=== PATIENT | female | born 1945 | race Caucasian/White ===

== ENCOUNTER 2016-11-27 15:48 | Emergency (ER) | payer MEDICARE ==
[2016-06-04 03:07] VITALS: BMI 18.2
[~2016-11-27 15:48] MED LIST: ASPIRIN325 MG PO; BAYER CHEWABLE81 MG PO; BETAPACE 80 MG80 MG PO; CARDIZEM CD120 MG PO; COMBIGAN OPHT DR5 ML EACH EYE; CORDARONE200 MG PO; ELIQUIS5 MG PO; FERROUS SU220 MG/5 M PO; FISH OIL 1,0001 CA1 PO; HCTZ25 MG PO; K-DUR20 MEQ PO; LANOXIN250 MCG PO; LASIX40 MG PO; LEVAQUIN750 MG PO; MUCINEX DM ER1 EAC1 PO; NORCO 10/325 TA1 TA1 PO; NORCO 5/325 TAB1 TA1 PO; PRAVACHOL40 MG PO; PRINIVIL10 MG PO; PULMICORT180 MCG/AE INH; ST JOSEPH ASPIR81 MG PO; TUDORZA PRESS400 MCG INH; XALATAN 0.0052.5 ML EACH EYE; XARELTO20 MG PO; XOPENEX 0.0.63 MG/3 UPD; ZESTRIL40 MG
[2016-11-27 16:55] LABS: BASOPHILS 0.1 % (0.0-2.0); EOSINOPHILS 0.3 % (0-7); HEMATOCRIT 43.1 % (36.0-48.0); HEMOGLOBIN 14.4 g/dL (12-16); IMMATURE GRANULOCYTES 0.3 % (0-5); LYMPHOCYTES 7.2 % (15-50); MCH 29.9 pg (26.0-34.0); MCHC 33.4 g/dL (31.0-37.0); MCV 89.6 fL (80.0-100.0); MONOCYTES 7.7 % (2-11); NEUTROPHILS 84.4 % (40-80); PLATELET COUNT 261 10x3/uL (130-400); RBC 4.81 10x6/uL (4.00-5.40); RDW 12.3 % (11.5-14.5); WBC 16.7 10x3/uL (4.8-10.8)
[2016-11-27 17:45] LABS: ALBUMIN 3.8 g/dL (3.4-5.0); ALKALINE PHOSPHATASE 89 U/L (46-116); ALT (SGPT) 13 U/L (10-68); BILIRUBIN - TOTAL 0.83 mg/dL (0.2-1.3); CALC OSMOLALITY 267 mosm/kg (275-300); CALCIUM 9.6 mg/dL (8.5-10.1); CARBON DIOXIDE 29.9 mmol/L (21.0-32.0); CHLORIDE - SERUM 93 mmol/L (98-107); CREATININE - SERUM 0.7 mg/dL (0.6-1.3); GLUCOSE 128 mg/dL (74-106); POTASSIUM - SERUM 3.1 mmol/L (3.5-5.1); SODIUM 133 mmol/L (136-145); UREA NITROGEN 12 mg/dL (7-18); eGFR NON AFRICAN AMERICAN 87 mL/min (90-120)
== END 2016-11-27 19:00 | disposition home or self-care (01) ==
LOC: D.ER 15:48
PROVIDERS: Emergency Medicine
DX: R06.02 Shortness of breath (principal); J44.9 Chronic obstructive pulmonary disease, unspecified; Z85.118 Personal history of other malignant neoplasm of bronchus and lung; I48.91 Unspecified atrial fibrillation; E87.6 Hypokalemia; I10 Essential (primary) hypertension; H40.9 Unspecified glaucoma

== ENCOUNTER 2016-12-14 07:34 | Observation (INO) | payer MEDICARE ==
[~2016-12-14] VITALS: Ht 167.6 cm; Wt 49.7 kg
[2016-12-14 08:36] LABS: BASOPHILS 0.6 % (0.0-2.0); HEMATOCRIT 45.5 % (36.0-48.0); HEMOGLOBIN 14.9 g/dL (12-16); IMMATURE GRANULOCYTES 0.1 % (0-5); LYMPHOCYTES 17.4 % (15-50); MCH 30.1 pg (26.0-34.0); MCHC 32.7 g/dL (31.0-37.0); MCV 91.9 fL (80.0-100.0); MONOCYTES 7.6 % (2-11); NEUTROPHILS 69.3 % (40-80); RBC 4.95 10x6/uL (4.00-5.40); RDW 12.5 % (11.5-14.5); WBC 8.5 10x3/uL (4.8-10.8)
[2016-12-14 08:37] LABS: PLATELET COUNT 354 10x3/uL (130-400)
[2016-12-14 08:52] LABS: ALBUMIN 3.7 g/dL (3.4-5.0); ALKALINE PHOSPHATASE 89 U/L (46-116); ALT (SGPT) 18 U/L (10-68); BILIRUBIN - TOTAL 0.59 mg/dL (0.2-1.3); CALC OSMOLALITY 275 mosm/kg (275-300); CALCIUM 10.2 mg/dL (8.5-10.1); CARBON DIOXIDE 29.6 mmol/L (21.0-32.0); CHLORIDE - SERUM 99 mmol/L (98-107); CREATININE - SERUM 0.8 mg/dL (0.6-1.3); GLUCOSE 133 mg/dL (74-106); POTASSIUM - SERUM 4.6 mmol/L (3.5-5.1); PROTEIN - SERUM 7.5 g/dL (6.4-8.2); SODIUM 137 mmol/L (136-145); UREA NITROGEN 13 mg/dL (7-18); eGFR NON AFRICAN AMERICAN 75 mL/min (90-120)
[2016-12-14 09:00] LABS: PRO BNP 1932 pg/mL (0-125)
[2016-12-14 09:03] LABS: TROPONIN-I < 0.017 ng/mL (0.000-0.060)
[2016-12-14 13:39] VITALS: BP 96/53; Ht 167.6 cm; Wt 49.7 kg
[2016-12-14 15:55] VITALS: BP 81/54
--- NOTE | 2016-12-14 17:13 | NUR ---
CONVERTED TO SR PER POSTING MACHINE OPERATOR
--- NOTE | 2016-12-14 18:24 | NUR ---
SPOKE WITH DR ALEXEI ESQUIVEL'Laura COVERT PT IS NOW IN SR
[2016-12-14 20:02] VITALS: BP 96/55
[2016-12-15] VITALS: BP 96/54
[2016-12-15 04:19] VITALS: BP 119/51
[2016-12-15 06:33] LABS: CALC OSMOLALITY 283 mosm/kg (275-300); CALCIUM 9.1 mg/dL (8.5-10.1); CARBON DIOXIDE 29.5 mmol/L (21.0-32.0); CHLORIDE - SERUM 102 mmol/L (98-107); CREATININE - SERUM 0.7 mg/dL (0.6-1.3); GLUCOSE 152 mg/dL (74-106); POTASSIUM - SERUM 4.1 mmol/L (3.5-5.1); SODIUM 139 mmol/L (136-145); eGFR NON AFRICAN AMERICAN 87 mL/min (90-120)
[2016-12-15 06:36] LABS: UREA NITROGEN 22 mg/dL (7-18)
[2016-12-15 06:47] LABS: BASOPHILS 0 % (0.0-2.0); EOSINOPHILS 0 % (0-7); HEMATOCRIT 38.8 % (36.0-48.0); HEMOGLOBIN 12.5 g/dL (12-16); IMMATURE GRANULOCYTES 0.2 % (0-5); LYMPHOCYTES 8.2 % (15-50); MCH 29.6 pg (26.0-34.0); MCHC 32.2 g/dL (31.0-37.0); MCV 91.9 fL (80.0-100.0); MEAN PLATELET VOLUME 9.1 fL (7.4-10.4); MONOCYTES 1.3 % (2-11); NEUTROPHILS 90.3 % (40-80); RBC 4.22 10x6/uL (4.00-5.40); RDW 12.3 % (11.5-14.5)
[2016-12-15 06:53] LABS: PLATELET COUNT 278 10x3/uL (130-400); WBC 6.3 10x3/uL (4.8-10.8)
[2016-12-15 07:59] VITALS: BP 133/61
--- NOTE | 2016-12-15 08:03 | NUR ---
UP AT BEDSIDE SINK FOR ORAL CARE THIS AM. IV OF NS INFUSING TO RIGHT FA AT 50 CC/HR WITHOUT PROBLEMS. ON HEART MONITOR SHOWING SR, HR 71. ON 2L PER NC. WILL CONTINUE TO MONITOR.
[2016-12-15] MEDS ORDERED: MUCINEX600 MG PO (10:03)
[2016-12-15] MEDS ORDERED: XOPENEX 0.0.63 MG/3 UPD (10:03)
[2016-12-15] MEDS ORDERED: STERAPRED DS 1010 MG PO (10:04)
--- NOTE | 2016-12-15 11:21 | NUR ---
WALK TEST WAS PERFORMED BY RT PEPE ON 12/15/16 WITH RESULTS FOLLOWS: RESTING ROOM AIR SPO2: 90% SPO2 DURING EXERCISE/WALKIN% SPO2 DURING EXERCISE/WALKING ON OXYGEN 2L VIA NC: 96% SPO2 TESTING DOCUMENTATION FORM PLACED IN CHART.
[2016-12-15 12:00] VITALS: BP 109/74
--- NOTE | 2016-12-15 12:05 | NUR ---
REFUSED SCD'S. PATIENT IS UP AD JAM
--- NOTE | 2016-12-15 12:24 | NUR ---
Patient Name: ALEXIS ROBBINS Admission Status: ER Accout number: [id number] Admission Date: 12-14-2016 : 1945 Admission Diagnosis: Attending: SUNITHA Current LOS: 1 Anticipated DC Date: 12-15-2016 Planned Disposition: Home Primary Insurance: HUMA[employer] CHOICE PPO MCR ADVANT Is the patient Alert and Oriented? Yes * How many steps to enter\exit or inside your home? FIVE- WITH HANDRAIL * PCP DR REYES - * Pharmacy [facility] * Preadmission Environment Home Alone * ADLs Partial Dependent * Partial ADLs (Assistance needed) Ambulation * Equipment Bedside Commode Nebulizer Rolling Walker/ROLLATOR Shower Chair PT REPORTS PREFERRED DME PROVIDED IS [employer], BUT INFORMED THAT [employer] IS NOT IN NETWORK WITH [employer], SO SHE IS UNABLE TO USE THEM. * List name and contact numbers for known caregivers / representatives who currently or will assist patient after discharge: LADY CRESPO, DTR, * Community resources currently utilized None * Additional services required to return to the preadmission environment? Yes * Can the patient safely return to the preadmission environment? Yes * Has this patient been hospitalized within the prior 30 days at any hospital? No Discharge Planning Comments: CM MET WITH PATIENT TO ASSESS DC PLAN/NEEDS. PT STATED SHE LIVES AT HOME ALONE AND IS INDEPENDENT IN HER CARE/ADL'S AND USES ROLLATOR WHEN AMBULATING. SHE STATED SHE DOES NOT DRIVE AND HER DAUGHTER PROVIDES HER TRANSPORTATION AND WILL DRIVE HER HOME AT [place]. SHE STATED SHE HAS USED OXYGEN IN THE PAST, BUT HAS NOT REQUIRED OXYGEN IN ABOUT THE LAST TWO YEARS. SHE STATED THAT RECENTLY SHE HAS BEEN MORE SOB AND THAT DR REYES HAD SENT AND OXYGEN ORDER TO [facility] LAST WEEK FROM HER CLINIC. PT STATED THAT SHE HAD RECEIVED A CALL FROM [facility], BUT THAT OXYGEN HAS YET TO BE DELIVERED TO HER. DR ZIEGLER ORDERED SPO2 TESTING DURING THIS HOSPITAL STAY AND PT QUALIFIES FOR OXYGEN. CM RECEIVED ORDER FOR HOME/PORTABLE OXYGEN FROM [facility] AND PLACED CALL TO [facility] TO INFORM OF ORDER. [facility] TO FAX CM OXYGEN ORDER FOR DR ZIEGLER TO SIGN AND INFORMED THAT ONCE ORDER IS RECEIVED THEY WILL DELIVER OXYGEN TO PATIENT. CM WILL AWAIT OXYGEN ORDER FROM [facility] AND PROCEED WITH ORDER ONCE IS HAS BEEN RECEIVED. PT VOICED NO NEED FOR ANY FURTHER DME EQUIPMENT AT THIS TIME. PT STATED SHE HAS USED [facility] IN THE PAST, BUT DOES NOT FEEL SHE WILL REQUIRE HH SERVICES AT [place] AND ALSO DENIED NEED FOR REHAB SERVICES. CM WILL FOLLOW AND ASSIST. Sharepoint Net Developer: Anjelica Vivar RN
--- NOTE | 2016-12-15 12:28 | NUR ---
WALK TEST WAS PERFORMED BY RT PEPE ON 12/15/16 WITH RESULTS FOLLOWS: RESTING ROOM AIR SPO2: 90% ROOM AIR SPO2 DURING EXERCISE/WALKIN% SPO2 DURING EXERCISE/WALKING ON OXYGEN 2L VIA NC: 96% SPO2 TESTING DOCUMENTATION FORM PLACED IN CHART.
--- NOTE | 2016-12-15 15:57 | NUR ---
SALINE LOCK REMOVED WITH CATH TIP INTACT. VERBAL AND WRITTEN DISCHARGE INSTRUCTIONS GIVEN TO PATIENT. DISCHARGED HOME WITH PORTABLE OXYGEN VIA WHEELCHAIR.
--- NOTE | 2016-12-16 16:40 | CN ---
PATIENT NAME:ALEXIS RAMIREZ MEDICAL RECORD: [id number] : [birth year] LOCATION:. D.2111 ADMIT DATE: 12/14/16 ACCOUNT: [id number] CONSULTING PHYSICIAN: JACQUELIN JONES MD REFERRING PHYSICIAN: PHIL REYES MD DATE OF CONSULTATION: 12/14/2016 Cardiology Consultation DIAGNOSES: 1. Atrial fibrillation. 2. History of paroxysmal atrial fibrillation. 3. Tachycardia. 4. Shortness of breath, dyspnea on exertion. 5. Hypertension. 6. Coronary artery disease. HISTORY OF PRESENT ILLNESS: Mrs. Ramirez presents with shortness of breath, dyspnea on exertion. She can feel that her heart has been out of rhythm since this morning. She has a history of atrial fibrillation and has had cardioversion in the past. She is on sotalol for the atrial fibrillation. PHYSICAL EXAMINATION: GENERAL APPEARANCE: Well-nourished, well-developed, appears stated age. Level of distress, comfortable. PSYCHIATRIC: Mental status, alert, normal affect. Orientation, oriented to time, place and person. EYES: Lids and conjunctiva, noninjected. No discharge, no pallor. ENT: Lips, teeth, gums, normal dentition. Oropharynx, no cyanosis, no pallor. NECK: Carotid arteries, bilateral normal upstroke, no bruits, no thrills. JUGULAR VEINS: No jugular venous pressure or distention. CERVICAL LYMPH NODES: Nontender, nonenlarged. THYROID: Not enlarged. Nontender. No nodules. LUNGS: Respiratory effort, unlabored. CHEST: Normal curvature. No thoracic deformity. No chest wall tenderness. Percussion, resonant. Auscultation, clear. No wheezes, no rales, no rhonchi. CARDIOVASCULAR: Precordial exam, nondisplaced. No heaves or pericardial thrills. Heart is irregularly irregular in atrial fibrillation. Heart sounds, normal S1, normal S2. No S3, no gallop, no rub. Systolic murmur, not heard. Diastolic murmur, not heard. EXTREMITIES: No cyanosis, no edema. Peripheral pulses, full and equal in all extremities, except as noted. No bruits appreciated. ABDOMEN: Soft, nondistended. Normal aorta. No bruit. Nontender. No masses. Liver, nontender, no hepatomegaly. Spleen, nontender, no splenomegaly. MUSCULOSKELETAL: No joint tenderness. No joint swelling. No erythema. NEUROLOGICAL: Normal gait, normal strength, normal tone. SKIN: Warm and dry. REVIEW OF SYSTEMS: The patient reports easy bruising but reports no swollen glands. The patient reports no fever, no night sweats, no significant weight gain, no significant weight loss. No significant exercise tolerance. The patient reports no dry eyes, no irritation, no vision change. Patient reports no difficulty hearing and no ear pain. Patient reports no frequent nose bleeds or nose and sinus problems. Patient reports on arm pain on exertion. No shortness of breath while lying down. No history of heart murmur. Patient CONSULT REPORT [id number] ALEXIS RAMIREZ reports no cough, no wheezing or coughing up blood. Patient reports no abdominal pain, no vomiting. Normal appetite. No diarrhea and not vomiting blood. No nausea and no constipation. Patient reports no incontinence. No difficulty urinating. No hematuria. No increased frequency. Patient reports no muscle aches. No weakness, no arthralgias, no back pain. No swelling of the extremities. Patient reports no abnormal mole, no jaundice, no rashes. Reports no loss of consciousness. No weakness and no numbness. No seizures, dizziness, or headaches. The patient reports no depression, no sleep disturbance, feeling safe in a relationship and no alcohol abuse. Patient reports on fatigue. Reports no runny nose or sinus pressure. No itching, no hives, and no frequent sneezing. OVERALL IMPRESSION: At this time, we will try Corvert. If she does not convert with Corvert, we will proceed with DC cardioversion. TRANSINT:[id number] Voice Confirmation ID: [id number] DOCUMENT ID: [id number] JACQUELIN JONES MD at 1640 CC: [id number] DICTATION DATE: 12/14/16 1633 SPECIAL EFFECTS MAKEUP ARTIST: 12/14/16 1649 DIS IN 12/15/16 [id number] [place] [address]
--- NOTE | 2016-12-16 16:40 | DS ---
PATIENT:ALEXIS RAMIREZ :[birth year] MEDICAL RECORD: [id number] DISCHARGE SUMMARY ADMISSION DATE: 12/14/16 DISCHARGE DATE: 12/15/16 DISCHARGE DIAGNOSES: 1. Paroxysmal atrial fibrillation. 2. Atrial fibrillation converted pharmacologically with Corvert to sinus rhythm this admission. 3. Hyperlipidemia. 4. Hypertension. HOSPITAL COURSE: Mrs. Ramirez presents with atrial fibrillation times less than 1 day. She received IV Corvert and converted to sinus rhythm. She was discharged home. Maintain on sotalol. Follow up with Dr. Jarquin as previously scheduled. TRANSINT:[id number] Voice Confirmation ID: [id number] DOCUMENT ID: [id number] JACQUELIN JONES MD at 1640 CC: [id number] DICTATION DATE: 12/15/1637 RAILWAY TRACTION LINE WORKER: 12/15/16 0855 DIS IN 12/15/[address] [address]
== END 2016-12-15 16:01 | disposition home or self-care (01) ==
LOC: D.ER 07:34 → D.M2 12:42 → OBSVTIME 12:42 → D.M2 12:42
PROVIDERS: Emergency Medicine; Family Medicine; ADMIT Family Medicine
DX: I48.0 Paroxysmal atrial fibrillation (principal); I11.0 Hypertensive heart disease with heart failure; I50.9 Heart failure, unspecified; E78.5 Hyperlipidemia, unspecified; I25.10 Atherosclerotic heart disease of native coronary artery without angina pectoris; E05.90 Thyrotoxicosis, unspecified without thyrotoxic crisis or storm; J44.1 Chronic obstructive pulmonary disease with (acute) exacerbation; E83.52 Hypercalcemia; Z87.891 Personal history of nicotine dependence

== ENCOUNTER 2016-12-15 21:51 | Inpatient (IN) | payer MEDICARE ==
[~2016-12-15] VITALS: Ht 167.6 cm; Wt 50.5 kg
[~2016-12-15 21:51] MED LIST changes: +MUCINEX600 MG PO; +STERAPRED DS 1010 MG PO
[2016-12-16 00:21] LABS: BASOPHILS 0 % (0.0-2.0); EOSINOPHILS 0 % (0-7); HEMATOCRIT 40.1 % (36.0-48.0); HEMOGLOBIN 13.2 g/dL (12-16); IMMATURE GRANULOCYTES 0.2 % (0-5); LYMPHOCYTES 3.4 % (15-50); MCHC 32.9 g/dL (31.0-37.0); MCV 91.1 fL (80.0-100.0); MEAN PLATELET VOLUME 8.9 fL (7.4-10.4); MONOCYTES 3.2 % (2-11); NEUTROPHILS 93.2 % (40-80); PLATELET COUNT 313 10x3/uL (130-400); RDW 12.6 % (11.5-14.5); WBC 18.6 10x3/uL (4.8-10.8)
[2016-12-16 00:46] LABS: ALBUMIN 3.4 g/dL (3.4-5.0); ALKALINE PHOSPHATASE 70 U/L (46-116); ALT (SGPT) 17 U/L (10-68); BILIRUBIN - TOTAL 0.27 mg/dL (0.2-1.3); CALC OSMOLALITY 286 mosm/kg (275-300); CALCIUM 9.6 mg/dL (8.5-10.1); CHLORIDE - SERUM 102 mmol/L (98-107); GLUCOSE 134 mg/dL (74-106); POTASSIUM - SERUM 3.7 mmol/L (3.5-5.1); PROTEIN - SERUM 6.9 g/dL (6.4-8.2); SODIUM 142 mmol/L (136-145); UREA NITROGEN 19 mg/dL (7-18)
[2016-12-16 00:47] LABS: CKMB 3.2 U/L (0.0-3.6); CREATINE KINASE 107 UL (21-215); MAGNESIUM - SERUM 2.2 mg/dL (1.8-2.4); PRO BNP 3858 pg/mL (0-125)
[2016-12-16 00:55] LABS: CREATININE - SERUM 0.5 mg/dL (0.6-1.3); TROPONIN-I 0.016 ng/mL (0.000-0.060); eGFR NON AFRICAN AMERICAN > 90 mL/min (90-120)
--- NOTE | 2016-12-16 01:43 | NUR ---
RECEIVED FROM ER, DORITA DRIP@ 10,HEART RATE 115, TELEMTRY ON, CALL LIGHT IN REACH, BED IS LOW, SRX2,DENIES ANY NEEDS, WILL CONTINUE MONITOR
[2016-12-16 02:21] VITALS: BP 107/80; BMI 17.6
[2016-12-16 04:00] VITALS: BP 107/80
--- NOTE | 2016-12-16 04:04 | NUR ---
DUPLICATOR PUNCH OPERATOR AT BEDSIDE TO OBTAIN VITALS, CALL LIGHT IN REACH. WILL CONTINUE TO MONITOR.
--- NOTE | 2016-12-16 04:12 | NUR ---
PT SLEEPING, TELEMTRY 79-CAF, CALL LIGHT IN REACH, SRX2
--- NOTE | 2016-12-16 07:40 | NUR ---
ASSESSMENT COMPLETED. TELEMERTY SHOWS FLUTTER AT 92 RIGHT AC IV WITH CARDIZEM AT 10. SR UP WITH CALL LIGHT IN REACH. WILL MONITOR.DENIES ANY NEEDS
[2016-12-16 08:04] VITALS: BP 83/54
--- NOTE | 2016-12-16 08:11 | NUR ---
RESTING QUIETLY NAD NOTED
[2016-12-16 11:48] VITALS: BP 98/50
[2016-12-16 13:31] VITALS: Ht 167.6 cm; Wt 50.5 kg
[2016-12-16 15:46] VITALS: BP 104/55
[2016-12-16 20:00] VITALS: BP 113/65
--- NOTE | 2016-12-16 20:52 | NUR ---
NOTIFIED BY MT THAT PT HAS CONVERTED TO SR WITH HR OF 69, WILL CONT TO MONITOR.
[2016-12-17] VITALS: BP 110/64
--- NOTE | 2016-12-17 01:47 | NUR ---
PT RESTING SOUNDLY WITHOUT C/O OR DISTRESS NOTED. CALL LIGHT WITHIN REACH. WILL CONT TO MONITOR.
[2016-12-17 04:00] VITALS: BP 119/60
[2016-12-17 06:50] LABS: BASOPHILS 0 % (0.0-2.0); EOSINOPHILS 0 % (0-7); HEMATOCRIT 38.8 % (36.0-48.0); HEMOGLOBIN 12.3 g/dL (12-16); IMMATURE GRANULOCYTES 0.2 % (0-5); LYMPHOCYTES 6.1 % (15-50); MCH 29.6 pg (26.0-34.0); MCHC 31.7 g/dL (31.0-37.0); MCV 93.3 fL (80.0-100.0); MEAN PLATELET VOLUME 9.4 fL (7.4-10.4); MONOCYTES 4.7 % (2-11); PLATELET COUNT 319 10x3/uL (130-400); RBC 4.16 10x6/uL (4.00-5.40); RDW 12.6 % (11.5-14.5); WBC 13.1 10x3/uL (4.8-10.8)
--- NOTE | 2016-12-17 07:52 | NUR ---
PT UP TO BATHROOM DENIES NEEDS WILL CONTIUE TO MONITOR.
[2016-12-17 08:02] VITALS: BP 126/65
[2016-12-17 11:18] VITALS: BP 110/61
[2016-12-17 15:50] VITALS: BP 155/65
--- NOTE | 2016-12-17 17:07 | NUR ---
PT SITTING UP ON SIDE OF BED EATING DINNER DENIES NEEDS WILL CONTINUE TO MONITOR.
--- NOTE | 2016-12-17 19:50 | NUR ---
INIITAL ROUNDS COMPLETED AT 1905 HRS. PT DENIED ANY DISCOMFORT. ASSESSMENT COMPLETED AT 1925 HRS. VSS. ALERT AND ORIENTED TO PERSON, PLACE AND TIME. O2 2LNC. LUNGS DIMINISHED IN BASES BILAT. SR PER CM HR 69. IV TO LFA SL. WILL CONTINUE TO MONITOR. SR UP X2, CALL LIGHT WITHIN REACH.
[2016-12-17 20:28] VITALS: BP 129/70
--- NOTE | 2016-12-17 22:02 | NUR ---
BALJEET DONE. IV TO LFA REDRESSED. PT DENIES ANY DISOCMFORT. WILL CONTINUE TO MONITOR.
[2016-12-18 00:19] VITALS: BP 120/66
--- NOTE | 2016-12-18 00:40 | NUR ---
PT RESTING WITH EYES CLOSED. RESP EVEN AND REGULAR. SR UP X2, CALL LIGHT WITHIN REACH.
--- NOTE | 2016-12-18 02:33 | NUR ---
PT RESTING WITH EYES CLOSED. RESP EVEN AND REGULAR. SR UP X2, CALL LIGHT WITHIN REACH.
--- NOTE | 2016-12-18 04:27 | NUR ---
VSS. PT DENIES AN DISCOMFORT. WILL CONTINUE TO MONITOR.
[2016-12-18 05:17] VITALS: BP 150/66
--- NOTE | 2016-12-18 06:33 | NUR ---
VSS THEOUGHOUT NGIHT. PT DENIED ANY DISCOMFORT. NEEDS MET; WILL CONTINUE TO MONITOR.
[2016-12-18 07:55] VITALS: BP 145/77
[2016-12-18 12:00] VITALS: BP 119/59
[2016-12-18] MEDS ORDERED: XARELTO15 MG PO (12:41)
--- NOTE | 2016-12-18 15:41 | NUR ---
D/C PTS L.FA PIV WITH CATHETER TIP FULLY INTACT. REMOVED TELEMETRY AND ALLOWED PT TO GET DRESSED. PT WAITING ON DISCHARGE PAPERS. NO FURTHER NEEDS AT THIS TIME. FAMILY AT BEDSIDE READY TO TRANSPORT HER HOME. WILL CPOC.
--- NOTE | 2016-12-19 15:45 | EC ---
PATIENT:ALEXIS ROBBINS DATE OF SERVICE: 12/15/16 SEX: F MEDICAL RECORD: [id number] DATE OF : [birth year] LOCATION:D. D.212 AGE OF PATIENT: 70 ADMISSION DATE: 12/15/16 REFERRING PHYSICIAN: INTERPRETING PHYSICIAN: LETICIA JARQUIN M.D. ECHOCARDIOGRAM REPORT ECHO CHARGES 4 ECHO COMPLETE CLINICAL DIAGNOSIS: ELEVATED BNP HX OF HTN LUNG CA ECHOCARDIOGRAPHIC MEASUREMENTS (adult normal given) AC root (d.<3.7cm) 3.4 LV Septum d (<1.2 cm> 1.3 Valve Excursion 1.6 LV Septum (systole) 1.6 Left Atria (s.<4.0cm> 3.1 LVPW d(<1.2cm) 1.7 RV (d.<2.3cm) 3.2 LVPW (sytole) 1.8 LV diastole(<5.6CM) 4.3 MV E-F(>70mm/sec) LV systole 3.1 LVOT Diameter 1.9 MV exc.(>10mm) Est.ejection fraction (50-75%) Pericardial Effusion N DOPPLER: LVIT A 52.0 E 127 LA RVSP 35 LVOT 98 AOP1/2T Asc. Ao 157 RVOT 67 RA PA 99 AV Gradient Peak 9.84 AV Mean 5.51 AV Area 1.9 MV Gradient Peak 9.14 MV Mean 3.21 MV Area COMMENTS: Final Inspector Paper: Dallas LUND Refractory Technician:Dallas Jarquin TAPE# PACS DATE OF SERVICE: 12/16/2016 REFERRING PHYSICIAN: Mason Blackwood MD INDICATIONS: 1. Elevated enzymes. 2. Atrial fibrillation. DESCRIPTION: Left ventricle demonstrates left ventricular hypertrophy. No wall motion abnormalities are seen. Estimated ejection fraction is 60%. Mitral ECHOCARDIOGRAM REPORT [id number] ALEXIS ROBBINS valve is structurally normal. There is mild regurgitation noted. Left atrium is normal in size. The aortic valve is trileaflet. There is no stenosis or regurgitation seen. Right ventricle is mildly dilated. Tricuspid valve is structurally normal. There is mild regurgitation noted. Right atrium is normal in size. There is no pericardial effusion seen. IMPRESSION: 1. Left ventricular hypertrophy with preserved ejection fraction of 60%. 2. Mild mitral regurgitation. 3. Mild tricuspid regurgitation. TRANSINT:[id number] Voice Confirmation ID: [id number] DOCUMENT ID: [id number] LETICIA JARQUIN M.D. at 1545 CC: [id number] DICTATION DATE: 12/17/16 1002 RIVERBOAT CAPTAIN: 12/17/162031 DIS IN 12/18/16 [id number] [place] [id number]
== END 2016-12-18 16:05 | disposition home or self-care (01) | DRG 308 ==
LOC: D.ER 21:51 → D.M2 23:47
PROVIDERS: Family Medicine; ADMIT Family Medicine
DX: I48.91 Unspecified atrial fibrillation (principal); I50.21 Acute systolic (congestive) heart failure; J44.1 Chronic obstructive pulmonary disease with (acute) exacerbation; E87.1 Hypo-osmolality and hyponatremia; I11.0 Hypertensive heart disease with heart failure; I25.10 Atherosclerotic heart disease of native coronary artery without angina pectoris; E05.90 Thyrotoxicosis, unspecified without thyrotoxic crisis or storm

== ENCOUNTER 2017-01-11 07:53 | Emergency (ER) | payer MEDICARE ==
[2016-12-16 13:31] VITALS: BMI 17.6
[~2017-01-11 07:53] MED LIST changes: +XARELTO15 MG PO
[2017-01-11 09:23] LABS: ALBUMIN 3.4 g/dL (3.4-5.0); ALKALINE PHOSPHATASE 104 U/L (46-116); ALT (SGPT) 16 U/L (10-68); BILIRUBIN - TOTAL 0.26 mg/dL (0.2-1.3); CALC OSMOLALITY 277 mosm/kg (275-300); CALCIUM 9.7 mg/dL (8.5-10.1); CARBON DIOXIDE 33.3 mmol/L (21.0-32.0); CHLORIDE - SERUM 100 mmol/L (98-107); CREATININE - SERUM 0.6 mg/dL (0.6-1.3); GLUCOSE 120 mg/dL (74-106); POTASSIUM - SERUM 3.9 mmol/L (3.5-5.1); PROTEIN - SERUM 7.4 g/dL (6.4-8.2); SODIUM 139 mmol/L (136-145); UREA NITROGEN 11 mg/dL (7-18); eGFR NON AFRICAN AMERICAN > 90 mL/min (90-120)
[2017-01-11 09:31] LABS: CREATINE KINASE 48 UL (21-215); PRO BNP 1651 pg/mL (0-125)
[2017-01-11 09:53] LABS: BASOPHILS 0.5 % (0.0-2.0); EOSINOPHILS 7.7 % (0-7); HEMATOCRIT 42.8 % (36.0-48.0); HEMOGLOBIN 13.7 g/dL (12-16); IMMATURE GRANULOCYTES 0.3 % (0-5); LYMPHOCYTES 12.9 % (15-50); MCH 29.8 pg (26.0-34.0); MEAN PLATELET VOLUME 8.9 fL (7.4-10.4); MONOCYTES 9.3 % (2-11); NEUTROPHILS 69.3 % (40-80); PLATELET COUNT 329 10x3/uL (130-400); RDW 12.5 % (11.5-14.5); WBC 6.5 10x3/uL (4.8-10.8)
[2017-01-12] MEDS ORDERED: PRAVACHOL20 MG PO (23:38)
== END 2017-01-11 11:20 | disposition home or self-care (01) ==
LOC: D.ER 07:53
PROVIDERS: Emergency Medicine
DX: I50.9 Heart failure, unspecified (principal); J44.9 Chronic obstructive pulmonary disease, unspecified; I10 Essential (primary) hypertension; I48.91 Unspecified atrial fibrillation

== ENCOUNTER 2017-01-12 19:56 | Inpatient (IN) | payer MEDICARE ==
[~2017-01-12] VITALS: Ht 167.6 cm; Wt 54.1 kg
[2017-01-12 21:01] LABS: BASOPHILS 0.2 % (0.0-2.0); HEMATOCRIT 42.8 % (36.0-48.0); IMMATURE GRANULOCYTES 0.2 % (0-5); LYMPHOCYTES 17.3 % (15-50); MCH 30.2 pg (26.0-34.0); MCHC 32.7 g/dL (31.0-37.0); MCV 92.4 fL (80.0-100.0); MEAN PLATELET VOLUME 8.8 fL (7.4-10.4); MONOCYTES 11.2 % (2-11); NEUTROPHILS 62.1 % (40-80); PLATELET COUNT 342 10x3/uL (130-400); RBC 4.63 10x6/uL (4.00-5.40); RDW 12.4 % (11.5-14.5)
[2017-01-12 21:13] LABS: WBC 8.7 10x3/uL (4.8-10.8)
[2017-01-12 21:17] LABS: ALBUMIN 3.7 g/dL (3.4-5.0); ALKALINE PHOSPHATASE 112 U/L (46-116); ALT (SGPT) 17 U/L (10-68); BILIRUBIN - TOTAL 0.48 mg/dL (0.2-1.3); CALC OSMOLALITY 275 mosm/kg (275-300); CARBON DIOXIDE 36.1 mmol/L (21.0-32.0); CHLORIDE - SERUM 96 mmol/L (98-107); CREATININE - SERUM 0.7 mg/dL (0.6-1.3); GLUCOSE 112 mg/dL (74-106); POTASSIUM - SERUM 3.8 mmol/L (3.5-5.1); PROTEIN - SERUM 7.9 g/dL (6.4-8.2); SODIUM 137 mmol/L (136-145); eGFR NON AFRICAN AMERICAN 87 mL/min (90-120)
[2017-01-12 21:18] LABS: UREA NITROGEN 16 mg/dL (7-18)
[2017-01-12 21:24] LABS: CREATINE KINASE 50 UL (21-215); PRO BNP 571 pg/mL (0-125)
--- NOTE | 2017-01-12 23:31 | NUR ---
RECEIVED REPORT FROM PRINCE IN ER, [id number] INFUSING, 02-2L, VITALS ARE STABLE, BED IS LOW, SRX2, CALL LIGHT IN REACH, WILL CONTINUE TO MONITOR
[2017-01-12] MEDS ORDERED: PRAVACHOL20 MG PO (23:38)
[2017-01-13 01:20] VITALS: BP 156/68
--- NOTE | 2017-01-13 03:40 | NUR ---
SITTING UP IN BED, TOOK SCD IN ROOM,NEEDS SCD MACHINE, WILL GET IN AM, PT IS UP ABLIB,DENIES ANY NEEDS, CALL LIGHT IN REACH
[2017-01-13 04:33] VITALS: BP 125/76
--- NOTE | 2017-01-13 07:11 | NUR ---
AM ROUNDING- PT LAYING IN BED ON BACK WITH EYES OPEN RESTING CURRENTLY RECEIVING A BREATHING TX. ON 02 AT 2L VIA NC. IV SEEN TO LEFT FOREARM THAT IS CURRENTLY SALINE LOCKED AND PATENT. ON MONITOR SHOWING SR, HR 91 WITH PAC'S. SCDS ARE AT BEDSIDE BUT NO SCD MACHINE IS IN PT ROOM. WILL GET A MACHINE IN PTS ROOM. NO NEED AT CURRENT TIME. WILL CONTINUE TO MONITOR.
[2017-01-13 08:01] VITALS: BP 121/69
[2017-01-13 11:46] VITALS: BP 104/66
[2017-01-13 13:44] VITALS: Ht 167.6 cm; Wt 54.1 kg
[2017-01-13 15:23] LABS: CKMB 1.8 U/L (0.0-3.6); CREATINE KINASE 50 UL (21-215)
[2017-01-13 15:26] LABS: TROPONIN-I < 0.017 ng/mL (0.000-0.060)
--- NOTE | 2017-01-13 15:32 | NUR ---
EKG DONE ON PT ORDERED AND PLACED IN CHART.
[2017-01-13 15:56] VITALS: BP 105/72
--- NOTE | 2017-01-13 16:40 | NUR ---
JUSTINA NOTIFIED ME THAT PT WAS IN UNCONTROLLED A-FIB AT 164. WENT TO CHECK TO SEE HOW PT WAS DOING AND PT STATED SHE FELT FINE. I ASKED PT IF SHE HAD BEEN IN A-FIB BEFORE AND SHE STATED YES THAT IS WHAT SHE TAKES BETAPACE FOR. PAGED DARLINE MURCIA NP TO NOTIFIY HER. LEIGH SORIANO IS IN ROOM NOW GETTING VITALS. WILL AWAIT CALLBACK AND CONTINUE TO MONITOR. NOTICED THAT PTS HOME MEDICAIONS WERE REVIEWED BY RN BUT HAD NOT BEEN CONTINUED BY PRIMARY. PAGED PRIMARY AND THEY CONTINUED ALL HOME MEDS WILL GIVE FIRST DOSE NOW. PAGED ON-CALL PLUMBER HELPER AND GOT ORDER FOR A ONE TIME DOSE OF BETAPACE 80MG AND REST OF MEDS TO BE CONTINUED. WILL CONTINUE TO MONITER CLOSELY.
--- NOTE | 2017-01-13 17:23 | NUR ---
Patient Name: ALEXIS ROBBINS Admission Status: ER Accout number: [id number] Admission Date: 01-12-2017 : 1945 Admission Diagnosis:SHORTNESS OF BREATH Attending: BERRY Current LOS: 1 Anticipated DC Date: Planned Disposition: Home Primary Insurance: [employer] CHOICE PPO MCR ADVANT Discharge Planning Comments: * Is the patient Alert and Oriented? Yes 0 * How many steps to enter\exit or inside your home? 5 W/RAIL 0 * PCP DR. REYES 0 * Pharmacy [facility] [address] 0 * Preadmission Environment Home Alone 0 * ADLs Independent 0 * Equipment Bedside Commode Nebulizer Oxygen Rolling Walker Shower Chair 0 * Other Equipment HOME AND PORTABLE OXYGEN [facility] - MEDICAL EQUIPMENT PROVIDER 0 * List name and contact numbers for known caregivers / representatives who currently or will assist patient after discharge: LADY CRESPO, DAUGHTER, 0 * Community resources currently utilized None 0 * Please name any agencies selected above. NONE 0 * Additional services required to return to the preadmission environment? No 0 * Can the patient safely return to the preadmission environment? Yes 0 * Has this patient been hospitalized within the prior 30 days at any hospital? Yes 0 CM MET WITH PT IN ROOM TO DISCUSS DISCHARGE PLANNING AND NEEDS. PT REPORTS LIVING AT HOME INDEPENDENTLY AND ALONE. PT REPORTS HAVING ALL NEEDED MEDICAL EQUIPMENT PROVIDED BY [facility]. PT HAS NO OUTSIDE SERVICES ASSISTING IN THE HOME. CM DISCUSSED AVAILABILITY OF HOME HEALTH, REHAB SERVICES AND MEDICAL EQUIPMENT. PT DENIES DISCHARGE NEEDS, REPORTS DAUGHTER WILL PICK HER UP FOR DISCHARGE HOME. CM OFFERED FOR HOME HEALTH TO CALL HER AFTER DISCHARGE TO CHECK ON HER AND ENSURE SHE NEEDED NOTHING AFTER GETTING HOME, PT REFUSED. CM PROVIDED PT WITH HOME HEALTH INFORMATION. PT PLANS TO DISCHARGE HOME ALONE, DENIES DISCHARGE NEEDS, DECLINES HOME HEALTH. CM TO FOLLOW AND ASSIST NEEDED. Nurse Epidemiologist: Jorge Mitchell
--- NOTE | 2017-01-13 17:42 | NUR ---
TOOK PTS VITAL SIGNS. HR- UNCONTROLLED A-FIB HR, 136 (DOCTOR IS AWARE) B/P- 124/85 RR- 16 TEMP- 98.2 ORALLY. PT STATED IT TAKES A LITTLE WHILE FOR HER SOTALOL TO START WORKING. PT STATED SHE FEELS FINE. WILL CONTINUE TO MONITOR.
--- NOTE | 2017-01-13 18:36 | NUR ---
PT LAYING IN BED ON BACK WITH EYES OPEN RESTING. DENIES ANY NEED AT THIS TIME. WILL CONTINUE TO MONITOR.
--- NOTE | 2017-01-13 19:39 | NUR ---
RESUMED CARE OF PT, 02-2L, IV-LFA-SL, [id number], SCD ARE ON, BED IS LOW, SRX2, DENIES ANY NEEDS, CALL LIGHT IN REACH, WILL CONTINUE TO MONITOR
[2017-01-13 20:20] VITALS: BP 109/69
[2017-01-13 20:55] LABS: CKMB 2.1 U/L (0.0-3.6); CREATINE KINASE 57 UL (21-215)
[2017-01-13 20:57] LABS: TROPONIN-I < 0.017 ng/mL (0.000-0.060)
[2017-01-14 00:15] VITALS: BP 97/66
[2017-01-14 01:40] LABS: BASOPHILS 0 % (0.0-2.0); EOSINOPHILS 0 % (0-7); HEMATOCRIT 39.5 % (36.0-48.0); HEMOGLOBIN 12.9 g/dL (12-16); IMMATURE GRANULOCYTES 0.2 % (0-5); LYMPHOCYTES 6.1 % (15-50); MCH 29.5 pg (26.0-34.0); MCHC 32.7 g/dL (31.0-37.0); MEAN PLATELET VOLUME 8.7 fL (7.4-10.4); MONOCYTES 5.6 % (2-11); NEUTROPHILS 88.1 % (40-80); PLATELET COUNT 347 10x3/uL (130-400); RBC 4.37 10x6/uL (4.00-5.40); RDW 12.3 % (11.5-14.5)
[2017-01-14 01:43] LABS: MCV 90.4 fL (80.0-100.0); WBC 12.4 10x3/uL (4.8-10.8)
[2017-01-14 01:55] LABS: CALC OSMOLALITY 279 mosm/kg (275-300); CALCIUM 9.3 mg/dL (8.5-10.1); CARBON DIOXIDE 34.4 mmol/L (21.0-32.0); CHLORIDE - SERUM 96 mmol/L (98-107); CREATININE - SERUM 0.7 mg/dL (0.6-1.3); GLUCOSE 147 mg/dL (74-106); MAGNESIUM - SERUM 1.6 mg/dL (1.8-2.4); PHOSPHOROUS 3.5 mg/dL (2.5-4.9); POTASSIUM - SERUM 3.5 mmol/L (3.5-5.1); SODIUM 138 mmol/L (136-145); UREA NITROGEN 16 mg/dL (7-18); eGFR NON AFRICAN AMERICAN 87 mL/min (90-120)
[2017-01-14 02:05] LABS: CKMB 1.9 U/L (0.0-3.6); CREATINE KINASE 58 UL (21-215); TROPONIN-I < 0.017 ng/mL (0.000-0.060)
[2017-01-14 04:20] VITALS: BP 92/61
[2017-01-14 08:39] VITALS: BP 108/66
--- NOTE | 2017-01-14 09:07 | HP ---
PATIENT: ALEXIS RAMIREZ MEDICAL RECORD: [id number] ACCOUNT: [id number] LOCATION:[address] : [birth year] ADMISSION DATE: 01/12/17 HISTORY AND PHYSICAL EXAMINATION HISTORY OF PRESENT ILLNESS: Ms. Ramirez is a 71-year-old white female patient of Dr. Burnett, who presents with a 3-day history of increasing shortness of breath, dyspnea on exertion, cough, chest tightness and known history of COPD. She has had some palpitations. She presents to the Emergency Room where she was found to have an acute exacerbation of COPD. She is also experiencing some intermittent atrial fibrillation. She is admitted at this time for evaluation. PAST MEDICAL HISTORY: Significant for intermittent AFib, hypertension, COPD, anemia, lung cancer in 2013, hyperlipidemia, macular degeneration, hyperthyroidism with thyrotoxicosis. GARAGE SUPERVISOR: Kenn Feliz MD. EGG SMELLER: Karel Seaman MD. PAST SURGICAL HISTORY: Previous surgeries include a left upper lobe lobectomy in 2013. ALLERGIES OR INTOLERANCES: Albuterol. HOME MEDICATIONS: Include Tudorza 1 puff b.i.d., Xopenex p.r.n., Xarelto 15 mg twice a day, pravastatin 20 mg daily, Betapace 40 mg b.i.d., baby aspirin a day, HCTZ 25 mg daily, KCl 20 mEq b.i.d., guaifenesin, Combigan ophthalmic drops and Xalatan ophthalmic drops. FAMILY HISTORY: Noncontributory. SOCIAL HISTORY: The patient is a former smoker, she quit in 2013. REVIEW OF SYSTEMS: She complains of increasing shortness of breath, coughing, wheezing; cough has been productive with discolored sputum. She has had a little tightness in her left chest when she takes a deep breath or coughs, nothing associated with exertion. She denies any edema. Appetite has been okay. Bowels have been okay. No change in urination. PHYSICAL EXAMINATION: GENERAL/APPEARANCE: No distress at this time, but she is at rest. HEENT: Head is normocephalic, sclerae nonicteric. HEART: Regular at this time without any irregularity. LUNGS: Diminished with a few rales and crackles diffusely. ABDOMEN: Soft. EXTREMITIES: Lower extremities reveal no edema. NEUROLOGIC: No gross focal deficits. IMPRESSION: 1. Chronic obstructive pulmonary disease exacerbation. 2. History of lung cancer. 3. Hyperthyroidism, currently being worked up and will be seeing endocrinology soon. 4. Hyperlipidemia. HISTORY AND PHYSICAL [id number] ALEXIS RAMIREZ PLAN: Admit, pulmonary consult, pulmonary toilet. Appreciate Dr. Seaman's help. See orders for rest of the plan. TRANSINT:[id number] Voice Confirmation ID: [id number] DOCUMENT ID: [id number] JUSTIN FRANCOIS DO at 0907 CC: [id number] DICTATION DATE: 01/13/17 1436 SHOW HOST: 01/13/17 1756 ADM IN [facility] [address] [place] [address]
--- NOTE | 2017-01-14 09:20 | NUR ---
TELEMETRY UCAF. RESP UL ON 02 2L NC. NPO FOR CTA. WILL CONT. PLAN OF CARE.
--- NOTE | 2017-01-14 09:40 | NUR ---
IV STARTED TO RIGHT WRIST WITH 20 GAUGE CATH X 1 STICK AND FLUSHED WITH NS. LINE IS PATENT.
[2017-01-14 12:22] VITALS: BP 95/63
--- NOTE | 2017-01-14 12:29 | NUR ---
LEAVING FOR CT BY W/C.
[2017-01-14 16:14] VITALS: BP 111/68
--- NOTE | 2017-01-14 19:13 | NUR ---
RESUMED CARE OF PT, PT SLEEPING, 02-2L, IV-LFA-SL, [id number], BED IS LOW, SRX2, CALL LIGHT IN REACH, WILL CONTINUE TO MONITOR
[2017-01-14 20:02] VITALS: BP 124/62
--- NOTE | 2017-01-14 21:40 | NUR ---
PT LAYING IN BED, WATCHING TV. NO NEEDS OR C/O VOICED. WILL CONT TO MONITOR.
[2017-01-15 00:14] VITALS: BP 112/63
--- NOTE | 2017-01-15 00:31 | NUR ---
SLEEPING, BED IS LOW, SRX2, CALL LIGHT IN REACH
[2017-01-15 04:13] VITALS: BP 119/56
[2017-01-15 08:00] VITALS: BP 128/61
--- NOTE | 2017-01-15 10:37 | NUR ---
TELEMETRY SR. RESP UL ON 2L NC. IV PATENT. CALL LIGHT IN REACH. WILL CONT. PLAN OF CARE.
[2017-01-15 11:53] VITALS: BP 132/74
[2017-01-15 15:57] VITALS: BP 130/66
[2017-01-15 20:36] VITALS: BP 144/70
[2017-01-16 01:24] VITALS: BP 143/85
--- NOTE | 2017-01-16 02:18 | NUR ---
TALKING ON THE PHONE WHILE LAYING UNDEER THE COVERS.RESP UNLAB WITH O2 @ 2L VIA NC. TELEMETRY SHOWING HR SR AT THIS TIRM. DENIES NEEDS AT THIS TIME. C/L IN REACG.
[2017-01-16 06:26] VITALS: BP 103/55
--- NOTE | 2017-01-16 07:38 | NUR ---
ON EP, NO LABS ORDERED, DONE. BILATERAL SALINE LOCKS SEEN TO RIGHT AND LEFT WRISTS. ON 2L PER NC. ON HEART MONITOR SHOWING SR, HR 67. DENIES ANY NEEDS AT PRESENT TIME. WILL CONTINUE TO FOLLOW.
[2017-01-16 07:47] VITALS: BP 133/46
[2017-01-16 08:13] LABS: MAGNESIUM - SERUM 2.1 mg/dL (1.8-2.4); PHOSPHOROUS 3.5 mg/dL (2.5-4.9); POTASSIUM - SERUM 4.2 mmol/L (3.5-5.1)
--- NOTE | 2017-01-16 08:35 | NUR ---
EP LAB VALUES WNL, WILL ORDER THEM FOR TOMORROW.
[2017-01-16 11:10] VITALS: BP 112/64
[2017-01-16] MEDS ORDERED: BETAPACE 80 MG80 MG PO (11:23)
[2017-01-16] MEDS ORDERED: FLORAJEN3 CAPS460 MG PO (11:26)
[2017-01-16] MEDS ORDERED: Levaquin PO (11:27)
[2017-01-16] MEDS ORDERED: PREDNISONE10 MG PO (11:27)
[2017-01-16] MEDS ORDERED: LEVAQUIN500 MG PO (11:29)
[2017-01-16] MEDS ORDERED: XARELTO15 MG PO (11:53)
--- NOTE | 2017-01-16 13:17 | NUR ---
PER PATIENT REQUEST SHE STATES THAT DARLINE MURCIA WAS SUPPOSE TO GIVE HER ANOTHER [address] ZIEGLER. CALLED AND SPOKE TO SUMMER. BILATERAL SALINE LOCKS REMOVED WITH CATH TIPS INTACT. VERBAL AND WRITTEN DISCHARGE INSTRUCTIONS GIVEN TO PATIENT AND DAUGHTER. DISCHARGED HOME ON HOME PORTABLE O2, PER WHEELCHAIR.
--- NOTE | 2017-01-16 13:39 | NUR ---
Patient Name: ALEXIS ROBBINS Encounter No: [id number] : 1945 Primary Insurance: [employer] CHOICE PPO MCR ADVANT Anticipated DC Date: 01-16-2017 Planned Disposition: Home LATE ENTRY: DCP follow-up note: CM MET WITH PT IN ROOM TO DISCUSS DISCHARGE NEEDS AND PLANNING. CM DISCUSSED AVAILABILITY OF HOME HEALTH, REHAB SERVICES AND MEDICAL EQUIPMENT. PT DENIES DISCHARGE NEEDS. DAUGHTER HERE TO TRANSPORT HOME AT DISCHARGE. IMPORTANT MESSAGE FROM MEDICARE PROVIDED AND EXPLAINED. Jorge Mitchell, CASE MANAGEMENT
--- NOTE | 2017-01-20 08:46 | CN ---
PATIENT NAME:ALEXIS RAMIREZ MEDICAL RECORD: [id number] : 41 LOCATION:D. D.2109 ADMIT DATE: 01/12/17 ACCOUNT: [id number] CONSULTING PHYSICIAN: JACQUELIN JONES MD REFERRING PHYSICIAN: ALBERTINA CASTILLO MD DATE OF CONSULTATION: 01/14/2017 DIAGNOSES: 1. Atrial fibrillation with rapid ventricular response. 2. Chronic obstructive pulmonary disease. 3. Coronary artery disease. 4. Hyperlipidemia. HISTORY OF PRESENT ILLNESS: Mrs. Ramirez is well known to us with a past history of atrial fibrillation and COPD. She presents with COPD exacerbation. Initially was in sinus rhythm. She has now gone into atrial fibrillation. She was on sotalol 40 mg b.i.d. She had a similar episode last month she had to have increased sotalol and Cardizem bolus to restore sinus rhythm. She has had no anginal chest discomfort. Her EKG is with no ST-T abnormalities. Troponin has been normal. PHYSICAL EXAMINATION: GENERAL APPEARANCE: Well-nourished, well-developed, appears stated age. Level of distress, comfortable. PSYCHIATRIC: Mental status, alert, normal affect. Orientation, oriented to time, place and person. EYES: Lids and conjunctiva, noninjected. No discharge, no pallor. ENT: Lips, teeth, gums, normal dentition. Oropharynx, no cyanosis, no pallor. NECK: Carotid arteries, bilateral normal upstroke, no bruits, no thrills. JUGULAR VEINS: No jugular venous pressure or distention. CERVICAL LYMPH NODES: Nontender, nonenlarged. THYROID: Not enlarged. Nontender. No nodules. LUNGS: Respiratory effort, unlabored. CHEST: Normal curvature. No thoracic deformity. No chest wall tenderness. Percussion, resonant. Auscultation, clear. No wheezes, no rales, no rhonchi. CARDIOVASCULAR: Precordial exam, nondisplaced. No heaves or pericardial thrills. Rate and rhythm, regular. Heart sounds, normal S1, normal S2. No S3, no gallop, no rub. Systolic murmur, not heard. Diastolic murmur, not heard. EXTREMITIES: No cyanosis, no edema. Peripheral pulses, full and equal in all extremities, except as noted. No bruits appreciated. ABDOMEN: Soft, nondistended. Normal aorta. No bruit. Nontender. No masses. Liver, nontender, no hepatomegaly. Spleen, nontender, no splenomegaly. MUSCULOSKELETAL: No joint tenderness. No joint swelling. No erythema. NEUROLOGICAL: Normal gait, normal strength, normal tone. SKIN: Warm and dry. REVIEW OF SYSTEMS: The patient reports easy bruising but reports no swollen glands. The patient reports no fever, no night sweats, no significant weight gain, no significant weight loss. No significant exercise tolerance. The patient reports no dry eyes, no irritation, no vision change. Patient reports no difficulty hearing and no ear pain. Patient reports no frequent nose bleeds or nose and sinus problems. Patient reports on arm pain on exertion. No shortness of breath while lying down. No history of heart murmur. Patient reports no cough, no wheezing or coughing up blood. Patient reports no abdominal pain, no vomiting. Normal appetite. No diarrhea and not vomiting CONSULT REPORT [id number] ALEXIS RAMIREZ blood. No nausea and no constipation. Patient reports no incontinence. No difficulty urinating. No hematuria. No increased frequency. Patient reports no muscle aches. No weakness, no arthralgias, no back pain. No swelling of the extremities. Patient reports no abnormal mole, no jaundice, no rashes. Reports no loss of consciousness. No weakness and no numbness. No seizures, dizziness, or headaches. The patient reports no depression, no sleep disturbance, feeling safe in a relationship and no alcohol abuse. Patient reports on fatigue. Reports no runny nose or sinus pressure. No itching, no hives, and no frequent sneezing. OVERALL IMPRESSION: Atrial fibrillation. At this time, we will offer sotalol to 80 mg b.i.d. and most likely keep it at 80 mg b.i.d., give a Cardizem bolus times 1. Hopefully, this will restore sinus rhythm as it has in the past. TRANSINT:[id number] Voice Confirmation ID: [id number] DOCUMENT ID: [id number] JACQUELIN JONES MD at 0846 CC: [id number] DICTATION DATE: 01/14/17 0942 PUBLIC TRANSPORTATION INSPECTOR: 01/14/17 1149 DIS IN 01/16/17 [id number] [place] [address]
== END 2017-01-16 13:28 | disposition home or self-care (01) | DRG 192 ==
LOC: D.ER 19:56 → D.M2 22:52
PROVIDERS: Emergency Medicine; Family Medicine; Internal Medicine Pulmonary Disease; ADMIT Family Medicine
DX: J44.0 Chronic obstructive pulmonary disease with (acute) lower respiratory infection (principal); J44.1 Chronic obstructive pulmonary disease with (acute) exacerbation; I48.91 Unspecified atrial fibrillation; E78.5 Hyperlipidemia, unspecified; I10 Essential (primary) hypertension; D50.9 Iron deficiency anemia, unspecified; H35.30 Unspecified macular degeneration; E05.90 Thyrotoxicosis, unspecified without thyrotoxic crisis or storm; J20.9 Acute bronchitis, unspecified; I25.10 Atherosclerotic heart disease of native coronary artery without angina pectoris; J30.9 Allergic rhinitis, unspecified; B37.9 Candidiasis, unspecified; Z87.891 Personal history of nicotine dependence

== ENCOUNTER 2017-02-09 09:30 | Emergency (ER) | payer MEDICARE ==
[2017-01-13 13:44] VITALS: BMI 17.6
[~2017-02-09 09:30] MED LIST changes: +FLORAJEN3 CAPS460 MG PO; +LEVAQUIN500 MG PO; +Levaquin PO; +PRAVACHOL20 MG PO; +PREDNISONE10 MG PO
[2017-02-09 10:36] LABS: BASOPHILS 0.5 % (0.0-2.0); EOSINOPHILS 13.4 % (0-7); HEMATOCRIT 44.4 % (36.0-48.0); HEMOGLOBIN 14.2 g/dL (12-16); IMMATURE GRANULOCYTES 0.2 % (0-5); LYMPHOCYTES 11.3 % (15-50); MCH 30.1 pg (26.0-34.0); MCV 94.3 fL (80.0-100.0); MEAN PLATELET VOLUME 8.8 fL (7.4-10.4); NEUTROPHILS 69.6 % (40-80); PLATELET COUNT 309 10x3/uL (130-400); RBC 4.71 10x6/uL (4.00-5.40); RDW 13.3 % (11.5-14.5); WBC 8.8 10x3/uL (4.8-10.8)
[2017-02-09 10:58] LABS: ALBUMIN 3.6 g/dL (3.4-5.0); ALKALINE PHOSPHATASE 98 U/L (46-116); ALT (SGPT) 22 U/L (10-68); CALC OSMOLALITY 270 mosm/kg (275-300); CALCIUM 9.7 mg/dL (8.5-10.1); CARBON DIOXIDE 32.8 mmol/L (21.0-32.0); CHLORIDE - SERUM 97 mmol/L (98-107); CREATININE - SERUM 0.7 mg/dL (0.6-1.3); GLUCOSE 126 mg/dL (74-106); POTASSIUM - SERUM 4.6 mmol/L (3.5-5.1); PROTEIN - SERUM 7.2 g/dL (6.4-8.2); SODIUM 135 mmol/L (136-145); TROPONIN-I < 0.017 ng/mL (0.000-0.060); UREA NITROGEN 9 mg/dL (7-18); eGFR NON AFRICAN AMERICAN 87 mL/min (90-120)
== END 2017-02-09 11:24 | disposition home or self-care (01) ==
LOC: D.ER 09:30
PROVIDERS: Physician Assistant
DX: K04.7 Periapical abscess without sinus (principal); K02.9 Dental caries, unspecified; K08.89 Other specified disorders of teeth and supporting structures; I48.91 Unspecified atrial fibrillation; J44.9 Chronic obstructive pulmonary disease, unspecified; I50.9 Heart failure, unspecified; I10 Essential (primary) hypertension; R00.1 Bradycardia, unspecified

== ENCOUNTER → 2017-04-20 10:32 | Outpatient (CLI) | payer MEDICARE ==
[2017-01-13 13:44] VITALS: BMI 17.6
== END | disposition home or self-care (01) ==
LOC: D.RT 10:32
DX: J44.9 Chronic obstructive pulmonary disease, unspecified (principal)

== ENCOUNTER → 2018-06-25 08:55 | Outpatient (CLI) | payer MEDICARE ==
[2017-01-13 13:44] VITALS: BMI 17.6
== END | disposition home or self-care (01) ==
LOC: D.RT 08:55
DX: J44.9 Chronic obstructive pulmonary disease, unspecified (principal)

== ENCOUNTER 2019-11-03 12:24 | Inpatient (IN) | payer MEDICARE ==
[2019-11-03] VITALS (8 sets, daily range): BP systolic 104–204; BP diastolic 60–94
[~2019-11-03] VITALS: Ht 167.6 cm; Wt 55.9 kg
[2019-11-03] MEDS ORDERED: TRELEGY ELLIPT1 EACH INH (12:30)
[2019-11-03] MEDS ORDERED: LISINOPRIL10 MG PO (12:49)
[2019-11-03] MEDS ORDERED: CATAPRES0.1 MG PO (12:50)
[2019-11-03 13:55] LABS: BASOPHILS 0.1 % (0-2); EOSINOPHILS 0.6 % (0-7); HEMATOCRIT 38.3 % (36.0-48.0); IMMATURE GRANULOCYTES 0.4 % (0-5); LYMPHOCYTES 5.3 % (15-50); MCH 29.6 pg (26.0-34.0); MCHC 31.3 g/dL (31.0-37.0); MCV 94.6 fL (80.0-100.0); MEAN PLATELET VOLUME 8.3 fL (7.4-10.4); MONOCYTES 7.7 % (2-11); NEUTROPHILS 85.9 % (40-80); PLATELET COUNT 302 10x3/uL (130-400); RBC 4.05 10x6/uL (4.00-5.40); RDW 13.6 % (11.5-14.5); WBC 11.1 10x3/uL (4.8-10.8)
[2019-11-03 14:04] LABS: CALC OSMOLALITY 282 mosm/kg (275-300); CALCIUM 9.3 mg/dL (8.5-10.1); CARBON DIOXIDE 31.8 mmol/L (21.0-32.0); CHLORIDE - SERUM 101 mmol/L (98-107); CREATININE - SERUM 0.7 mg/dL (0.6-1.3); GLUCOSE 112 mg/dL (74-106); SODIUM 141 mmol/L (136-145); UREA NITROGEN 16 mg/dL (7-18); eGFR NON AFRICAN AMERICAN 86 mL/min (90-120)
[2019-11-03 14:10] LABS: ALBUMIN 3.5 g/dL (3.4-5.0); ALKALINE PHOSPHATASE 102 U/L (46-116); ALT (SGPT) 16 U/L (10-68); BILIRUBIN - TOTAL 0.31 mg/dL (0.2-1.3); PROTEIN - SERUM 7.2 g/dL (6.4-8.2)
--- NOTE | 2019-11-03 15:15 | NUR ---
PT TO MRI AT THIS TIME
--- NOTE | 2019-11-03 15:50 | NUR ---
CALLED TO MRI. WENT OVER. PT CONTINUES TO BE VERY ANXIOUS ABOUT "GOING IN THE TUBE." EDP, DEBRA, INFORMED WHO GIVES VERBAL ORDER FOR 1MG ATIVAN IV ONE TIME. WILL CARRY OUT ORDER AND REASSESS.
--- NOTE | 2019-11-03 16:00 | NUR ---
PT RETURNED FROM MRI AT THIS TIME. PT RESTING IN BED WITH FAMILY AT BEDSIDE.
--- NOTE | 2019-11-03 17:54 | NUR ---
PROVIDED PT WITH ICE CHIPS
--- NOTE | 2019-11-03 18:19 | MORECARE ---
CASE MANAGEMENT DISCHARGE SUMMARY PATIENT: ALEXIS ROBBINS UNIT: [id number] ADM DATE: 11/03/19 AGE: 73 : 43 SEX: F ROOM/BED: D.1210 AUTHOR: BETO LIU PHYSICIAN: REFERRING PHYSICIAN: SHERI AUSTIN MD DATE OF SERVICE: 11/03/19 Discharge Plan Patient Name: ALEXIS ROBBINS [facility] [facility] 1945 Planned Disposition: Home Anticipated Discharge Date: 11/05/19 Discharge Date: Expected LOS: 2 Initial Reviewer: [email or web address] Initial Review Date: 11/03/2019 Generated: 11/03/19 7:19 pm Patient Name: ALEXIS ROBBINS Page 98440 at 1819 All edits/amendments must be made on the electronic document DICTATION DATE: 11/03/191818 RN NICU: ELIANE 11/03/191818 RPT#: [id number] DC DATE: STATUS: ADM IN [facility] [address] [place] [address] END OF REPORT
--- NOTE | 2019-11-03 18:26 | MORECARE ---
CASE MANAGEMENT DISCHARGE SUMMARY PATIENT: ALEXIS ROBBINS UNIT: [id number] ADM DATE: 11/03/19 AGE: 73 : 43 SEX: F ROOM/BED: D.1210 AUTHOR: BETO LIU PHYSICIAN: REFERRING PHYSICIAN: SHERI AUSTIN MD DATE OF SERVICE: 11/03/19 Discharge Plan Patient Name: ALEXIS ROBBINS [facility] [facility] 1945 Planned Disposition: Home Anticipated Discharge Date: 11/05/19 Discharge Date: Expected LOS: 2 Initial Reviewer: [email or web address] Initial Review Date: 11/03/2019 Generated: 11/03/19 7:25 pm DCPIA - Discharge Planning Initial Assessment Updated by [email or web address]: Lara Torre on 11/03/19 6:22 pm * Is the patient Alert and Oriented? Yes * PCP Dr. Burnett * Pharmacy [place] [address] , [place] [phone] * Preadmission Environment Home Alone * ADLs Independent * Equipment Bedside Commode Cane Oxygen Rolling Walker * Other Equipment Home O2 w/ portability - [employer] is her DME provider. * List name and contact numbers for known caregivers / representatives who currently or will assist patient after discharge: Laisha Monzon - daughter - [phone] * Verbal permission to speak to the caregivers and representatives has been obtained from the patient. Yes * Community resources currently utilized Home Health * Please name any agencies selected above. [facility] - JACQUE signed in ER for resumption. * Additional services required to return to the preadmission environment? Yes * Can the patient safely return to the preadmission environment? Yes * Has this patient been hospitalized within the prior 30 days at any hospital? No Last DP export: 11/03/19 5:19 p Patient Name: ALEXIS ROBBINS Page [id number] at 5126 All edits/amendments must be made on the electronic document DICTATION DATE: 11/03/191824 AD OPERATIONS COORDINATOR: ELIANE 11/03/191824 RPT#: [id number] DC DATE: STATUS: ADM IN [facility] [address] [place] [address] END OF REPORT
--- NOTE | 2019-11-03 18:32 | MORECARE ---
CASE MANAGEMENT DISCHARGE SUMMARY PATIENT: ALEXIS ROBBINS UNIT: [id number] ADM DATE: 11/03/19 AGE: 73 : 43 SEX: F ROOM/BED: D.1210 AUTHOR: BETO LIU PHYSICIAN: REFERRING PHYSICIAN: SHERI AUSTIN MD DATE OF SERVICE: 11/03/19 Discharge Plan Patient Name: ALEXIS ROBBINS Facility: [facility]:[place] : 1945 Planned Disposition: Home Anticipated Discharge Date: 11/05/19 Discharge Date: Expected LOS: 2 Initial Reviewer: [email or web address] Initial Review Date: 11/03/2019 Generated: 11/03/19 7:32 pm DCP- Discharge Planning Updated by [email or web address]: Lara Torre on 11/03/19 5:[address] DC PLAN: Home w/ resumption of [facility] vs Rehab. ANTICIPATED DC NEEDS: HH resumption VS Rehab. CM met with patient and her daughter to complete initial dc planning assessment. CM educated patient on the CM role and verbal consent given by patient to complete assessment. CM verified patient's address, phone number, and emergency contact phone numbers. Patient lives at home alone and reports she is usually independent in her care at home. Patient currently has [facility] and wishes to resume at discharge.They have only made one visit & she is to have physical therapy for her back. JACQUE form signed by patient for resumption of [facility]. Signed form placed in chart and signed form given to patient. At discharge patient plans to return home if she is able and feels this is a safe discharge. CM discussed rehab options with her as well. Transportation provider at discharge will be her daughter if she is able. They informed cm that she had to come to ER by ambulance because she was not able to get in the car due to her pain. CM will continue to follow and will assist as needed with dc plans/needs. Lara Torre RN, [facility] DCPIA - Discharge Planning Initial Assessment Updated by [email or web address]: Lara Torre on 11/03/19 6:22 pm * Is the patient Alert and Oriented? Yes * PCP Dr. Burnett * Pharmacy [place] [address], [place] [address] * Preadmission Environment Home Alone * ADLs Independent * Equipment Bedside Commode Cane Oxygen Rolling Walker * Other Equipment Home O2 w/ portability - [employer] is her DME provider. * List name and contact numbers for known caregivers / representatives who currently or will assist patient after discharge: Laisha Monzon - daughter - [phone] * Verbal permission to speak to the caregivers and representatives has been obtained from the patient. Yes * Community resources currently utilized Home Health * Please name any agencies selected above. [facility] SANTILLAN signed in ER for resumption. * Additional services required to return to the preadmission environment? Yes * Can the patient safely return to the preadmission environment? Yes * Has this patient been hospitalized within the prior 30 days at any hospital? No Last DP export: 11/03/19 5:26 p Patient Name: ALEXIS ROBBINS Page 35126 at 1832 All edits/amendments must be made on the electronic document DICTATION DATE: 11/03/191831 COOK HELPER MEAT: ELIANE 11/03/191831 RPT#: [id number] DC DATE: STATUS: ADM IN [facility] [address] [place] [address] END OF REPORT
--- NOTE | 2019-11-03 18:33 | NUR ---
PT LEAVING ED AT THIS TIME. DELAY IN TRANSFER DUE TO ROOM BEING DIRTY UNTIL NOW.
--- NOTE | 2019-11-03 18:44 | NUR ---
PT RECIEVED FROM ER VIA JOSECHER. DENIES NEEDS OR PAINA T THIS TIME. RR EVEN AND UNLABORED ON 2L NC. NEEDED ASSISTANCE TRANSFERRING TO THE BED. IV NOTED TO LEFT AC, SL. PT RESTING WITH EYES CLOSED, BUT EASILY AROUSABLE. BED IN LOWEST POSITION. CALL LIGHT WITHIN REACH. PT ORIENTED TO ROOM. WILL CONTINUE TO MONTIOR.
--- NOTE | 2019-11-03 19:24 | NUR ---
PT IS RESTING IN BED WITH EYES CLOSED. SHE OPENS HER EYES TO VERBAL STIMULI QUICKLY, BUT DROPS OFF QUICKLY WHEN NOT BEING SPOKEN TO. ALERT AND ORIENTED X 3. PT STATES SHE HAS TERRIBLE BACK PAIN, BUT HAS NONE AT THIS TIME. O2 IS ON @ 2LPM PER NC. NO SOB NOTED. LEFT AC SALINE LOCK NOTED. SR'S ARE UP X 2 IN BED. CALL LIGHT AND BEDSIDE TABLE ARE WITHIN EASY REACH.
--- NOTE | 2019-11-03 21:28 | NUR ---
PT ASSISTED UP TO THE BSC. VOIDED 300 CC DARK PAOLA URINE WITHOUT DIFFICULTY. ASSISTED BACK TO BED.
[2019-11-04 00:30] VITALS: BP 111/75
--- NOTE | 2019-11-04 01:00 | NUR ---
RESTING IN BED WITH EYES CLOSED.
[2019-11-04 04:00] VITALS: BP 109/73
--- NOTE | 2019-11-04 05:04 | NUR ---
I have reviewed this patient and I concur with the Shift Assessment completed by the Licensed Practical Nurse today this shift.
[2019-11-04 08:00] VITALS: BP 118/72
--- NOTE | 2019-11-04 09:04 | NUR ---
PATIENT RESTING WITH BACK PAIN TOLERABLE DIAUDID TURRET LATHE TENDER. PATIENT IS NPO AT THIS TIME. ASSISTED TO BSC WITH MODERATE PAIN REPORTED AND WEAKNESS NOTED. CL IN REACH
[2019-11-04 11:28] VITALS: BP 164/62
[2019-11-04 12:57] VITALS: Ht 167.6 cm; Wt 55.9 kg
[2019-11-04 16:02] VITALS: BP 119/62
--- NOTE | 2019-11-04 18:33 | NUR ---
PATIENT RESTING WITH NO NEEDS VOICED, PAIN CONTROLED WITH RESEARCH ENVIRONMENTAL SCIENTIST DILAUDID. CL IN REACH
[2019-11-04 19:24] VITALS: BP 89/64
--- NOTE | 2019-11-04 19:27 | NUR ---
PT IS RESTING IN HER ROOM, SITTING ON THE SIDE OF HER BED. ALERT AND ORIENTED X 3. SHE DENIES ACUTE DISCOMFORT AT THIS TIME. CLASSIFICATION COUNSELOR DILAUDID IN USE FOR PAIN CONTROL. IV INFUSING TO LEFT AC WITHOUT DIFFICULTY. NO REDNESS OR EDEMA NOTED AT THE INSERTION SITE. 02 IS ON @ 2LPM PER NC. NO SOB NOTED. SR'S ARE UP X 2 IN BED. CALL LIGHT AND BEDSIDE TABLE ARE WITHIN EASY REACH.
--- NOTE | 2019-11-04 23:25 | NUR ---
PT UP TO BSC WITH SBA. NO FURTHER NEEDS VOICED.
--- NOTE | 2019-11-04 23:53 | NUR ---
I have reviewed this patient and I concur with the Shift Assessment completed by the Licensed Practical Nurse today this shift.
[2019-11-05] VITALS (7 sets, daily range): BP systolic 129–186; BP diastolic 55–98
--- NOTE | 2019-11-05 02:51 | NUR ---
PT IS SITTING IN BED WIDE AWAKE. VOICED COMPLAINT OF "I JUST CANNOT SLEEP TONIGHT."
[2019-11-05 05:51] LABS: BASOPHILS 0 % (0-2); EOSINOPHILS 0 % (0-7); HEMATOCRIT 40.8 % (36.0-48.0); HEMOGLOBIN 12.8 g/dL (12-16); IMMATURE GRANULOCYTES 0.2 % (0-5); LYMPHOCYTES 3.7 % (15-50); MCH 29.6 pg (26.0-34.0); MCHC 31.4 g/dL (31.0-37.0); MCV 94.4 fL (80.0-100.0); MEAN PLATELET VOLUME 8.7 fL (7.4-10.4); MONOCYTES 4.7 % (2-11); NEUTROPHILS 91.4 % (40-80); RBC 4.32 10x6/uL (4.00-5.40); RDW 13.7 % (11.5-14.5); WBC 12.7 10x3/uL (4.8-10.8)
[2019-11-05 05:58] LABS: PLATELET COUNT 410 10x3/uL (130-400)
--- NOTE | 2019-11-05 06:14 | NUR ---
NO TX GIVEN BLOOD PRESSURE HIGH
[2019-11-05 06:42] LABS: ALBUMIN 3.6 g/dL (3.4-5.0); ANION GAP 13.4 mmol/L (8-16); BILIRUBIN - TOTAL 0.42 mg/dL (0.2-1.3); CALCIUM 9.7 mg/dL (8.5-10.1); CARBON DIOXIDE 32.2 mmol/L (21.0-32.0); POTASSIUM - SERUM 4.6 mmol/L (3.5-5.1); PROTEIN - SERUM 7.5 g/dL (6.4-8.2)
[2019-11-05 06:44] LABS: CREATININE - SERUM 0.9 mg/dL (0.6-1.3)
--- NOTE | 2019-11-05 07:05 | NUR ---
REPORT RECEIVED. WILL CONTINUE WITH POC. PT CURRENTLY SITTING ON EDGE OF BED. CALL LIGHT W/I REACH. PT IS AAO AND UP WITH ASSIST. RR EVEN AND UNLABORED ON 2L 02. NS INFUSING @30ML/HR VIA L.AC PIV. DILUADID PARTS FABRICATOR INFUSING @0.2/10. NO S/S OF DISTRESS NOTED. PT DENIES ANY NEEDS AT THIS TIME. WILL CTM.
--- NOTE | 2019-11-05 10:14 | NUR ---
I have reviewed this patient and I concur with the Shift Assessment completed by the Licensed Practical Nurse today this shift.
--- NOTE | 2019-11-05 12:06 | NUR ---
PT STATES THAT HER PCP HAS INSTRUCTED HER TO TAKE A HALF OF AN 80MG SOTOLOL IF HER AM DOSE OF SOTOLOL DOES NOT CONTROL HER HEART RATE. PT HAS BEEN IN AND OUT OF A-FIB BETWEEN 90 AND 120. NOTIFIED WHO VERBALLY ORDERED ONE TIME 40MG SOTOLOL DOSE. PLACED ORDER FOR MEDICATION AND WILL ADMININSTER. WILL CTM.
--- NOTE | 2019-11-05 19:22 | NUR ---
PATIENT SITTING UP IN BED WATCHING TV. CL IN REACH. RESP EVEN AND UNLABORED. A/O X4. DENIES NEEDS AT THIS TIME. PT ON 2L OF O2 VIA NC. BED IN LOW SIDE RAILS X2. LUNGS DIMINISHED. BOWEL ACTIVE X4. WILL CONTINUE TO MONITOR.
[2019-11-06 00:12] VITALS: BP 154/72
--- NOTE | 2019-11-06 01:12 | NUR ---
I have reviewed this patient and I concur with the Shift Assessment completed by the Licensed Practical Nurse today this shift.
[2019-11-06 04:36] VITALS: BP 178/72
[2019-11-06 06:36] LABS: BASOPHILS 0 % (0-2); EOSINOPHILS 0 % (0-7); HEMATOCRIT 34.7 % (36.0-48.0); HEMOGLOBIN 10.9 g/dL (12-16); IMMATURE GRANULOCYTES 0.3 % (0-5); MCH 29.5 pg (26.0-34.0); MCHC 31.4 g/dL (31.0-37.0); MEAN PLATELET VOLUME 8.4 fL (7.4-10.4); NEUTROPHILS 89.7 % (40-80); PLATELET COUNT 391 10x3/uL (130-400); RBC 3.69 10x6/uL (4.00-5.40); RDW 13.8 % (11.5-14.5); WBC 12.7 10x3/uL (4.8-10.8)
[2019-11-06 06:47] LABS: ALBUMIN 3.3 g/dL (3.4-5.0); ALKALINE PHOSPHATASE 104 U/L (46-116); BILIRUBIN - TOTAL 0.28 mg/dL (0.2-1.3); CALC OSMOLALITY 281 mosm/kg (275-300); CALCIUM 8.9 mg/dL (8.5-10.1); CARBON DIOXIDE 29.2 mmol/L (21.0-32.0); CHLORIDE - SERUM 101 mmol/L (98-107); CREATININE - SERUM 0.7 mg/dL (0.6-1.3); GLUCOSE 137 mg/dL (74-106); PROTEIN - SERUM 6.8 g/dL (6.4-8.2); SODIUM 138 mmol/L (136-145); UREA NITROGEN 25 mg/dL (7-18); eGFR NON AFRICAN AMERICAN 86 mL/min (90-120)
[2019-11-06 06:54] LABS: ALT (SGPT) 35 U/L (10-68)
[2019-11-06 07:39] VITALS: BP 202/66
--- NOTE | 2019-11-06 07:55 | NUR ---
SITTING ON BS EATING BREAKFAST. ALERT AND ORIENTED. NO C/O PAIN AT THIS TIME. RESP EVEN AND UNLABORED.
--- NOTE | 2019-11-06 09:28 | NUR ---
IV L AC NOT WORKING. REMOVED IV CATH INTACT. RESITED X2 STICKS WITH 22 G TO R AC. BLOOD RETURNED. NO C/O PAIN AT THIS TIME. RESP EVEN AND UNLABORED. ALERT AND OREINTED. CL IN REACH.
--- NOTE | 2019-11-06 11:57 | MORECARE ---
CASE MANAGEMENT DISCHARGE SUMMARY PATIENT: ALEXIS ROBBINS UNIT: [id number] ADM DATE: 11/03/19 AGE: 73 : 43 SEX: F ROOM/BED: D.1210 AUTHOR: BETO LIU PHYSICIAN: REFERRING PHYSICIAN: SHERI AUSTIN MD DATE OF SERVICE: 11/06/19 Discharge Plan Patient Name: ALEXIS ROBBISN Facility: [facility]:[place] : 1945 Planned Disposition: Home Anticipated Discharge Date: 11/05/19 Discharge Date: Expected LOS: 2 Initial Reviewer: [email or web address] Initial Review Date: 11/03/2019 Generated: 11/06/19 12:57 pm Comments DCP- Discharge Planning Updated by [email or web address]: Enriqueta Granda on 11/06/19 10:[address] Patient Name: ALEXIS ROBBINS Encounter No: [id number] : 1945 Primary Insurance: Natanael UlienA CHOICE PPO [id number]VANT Anticipated DC Date: 11-05-2019 Planned Disposition: Home External Planned Provider: : DCP follow-up note: Patient and family in agreement with discharge plan. No changes to plan. Case management will follow and assist as needed. IMM SIGNED, [facility]. Enriqueta Granda DCP- Discharge Planning Updated by [email or web address]: Lara Torre on 11/03/19 5:[address] DC PLAN: Home w/ resumption of [facility] vs Rehab. ANTICIPATED DC NEEDS: HH resumption VS Rehab. CM met with patient and her daughter to complete initial dc planning assessment. CM educated patient on the CM role and verbal consent given by patient to complete assessment. CM verified patient's address, phone number, and emergency contact phone numbers. Patient lives at home alone and reports she is usually independent in her care at home. Patient currently has [facility] and wishes to resume at discharge.They have only made one visit & she is to have physical therapy for her back. JACQUE form signed by patient for resumption of [facility]. Signed form placed in chart and signed form given to patient. At discharge patient plans to return home if she is able and feels this is a safe discharge. CM discussed rehab options with her as well. Transportation provider at discharge will be her daughter if she is able. They informed cm that she had to come to ER by ambulance because she was not able to get in the car due to her pain. CM will continue to follow and will assist as needed with dc plans/needs. Lara Torre RN, [facility] DCPIA - Discharge Planning Initial Assessment Updated by [email or web address]: Lara Torre on 11/03/19 6:22 pm * Is the patient Alert and Oriented? Yes * PCP Dr. Burnett * Pharmacy [place] [address] [place] [address] * Preadmission Environment Home Alone * ADLs Independent * Equipment Bedside Commode Cane Oxygen Rolling Walker * Other Equipment Home O2 w/ portability - [employer] is her DME provider. * List name and contact numbers for known caregivers / representatives who currently or will assist patient after discharge: Laisha Monzon - daughter - [phone] * Verbal permission to speak to the caregivers and representatives has been obtained from the patient. Yes * Community resources currently utilized Home Health * Please name any agencies selected above. [facility] SANTILLAN signed in ER for resumption. * Additional services required to return to the preadmission environment? Yes * Can the patient safely return to the preadmission environment? Yes * Has this patient been hospitalized within the prior 30 days at any hospital? No External Providers External Provider: [facility] Next Contact Date: Service Request Date: Service Type: Resolution: Reviewer: Comments: Coverage Notice Reviewer: [email or web address] Genaro Granda Notice Issued Date-Time: 11/06/2019 11:50 Notice Type: IM Discharge Notice Notice Delivered To: Patient Relationship to Patient: Integrated Pest Management Technician Name: Delivery Method: HAND - Hand Delivered Lindsey Days: Prior Verbal Notification: Recipient Understood Notice: Yes Recipient Signature: Yes Med Rec Note Co-signed by Attending: Coverage Notice Comment: Last DP export: 11/03/19 5:32 p Patient Name: ALEXIS ROBBINS Page 11891 at 1157 All edits/amendments must be made on the electronic document DICTATION DATE: 11/06/19 1154 SHOP TECH: ELIANE 11/06/19 1158 RPT#: [id number] DC DATE: STATUS: ADM IN [facility] [address] [place] [address] END OF REPORT
[2019-11-06] MEDS ORDERED: HYDROCODON-ACE1 EA10 PO (12:35)
--- NOTE | 2019-11-06 13:06 | NUR ---
DC INSTRUCTIONS GIVEN. VERBALIZES UNDERSTANDING. DAUGHTER TO PICK PATIENT UP. WILL BE TRANSFERED TO CAR IN PER STAFF FOR DC HOME.
--- NOTE | 2019-11-06 16:18 | MORECARE ---
CASE MANAGEMENT DISCHARGE SUMMARY PATIENT: ALEXIS ROBBINS UNIT: [id number] ADM DATE: 11/03/19 AGE: 73 : 43 SEX: F ROOM/BED: D.1210 AUTHOR: NOEDOC PHYSICIAN: REFERRING PHYSICIAN: SHERI AUSTIN MD DATE OF SERVICE: 11/06/19 Discharge Plan Patient Name: ALEXIS ROBBINS Facility: [facility]:[place] : 1945 Planned Disposition: Home Anticipated Discharge Date: 11/06/19 Discharge Date: 11/06/2019 Expected LOS: 3 Initial Reviewer: [email or web address] Initial Review Date: 11/03/2019 Generated: 11/06/19 5:18 pm Comments DCP- Discharge Planning Updated by [email or web address]: Enriqueta Granda on 11/06/19 10:[address] Patient Name: ALEXIS ROBBINS Encounter No: [id number] : 1945 Primary Insurance: [employer] PPO [employer] ADVANT Anticipated DC Date: 11-05-2019 Planned Disposition: Home External Planned Provider: : DCP follow-up note: Patient and family in agreement with discharge plan. No changes to plan. Case management will follow and assist as needed. IMM SIGNED, [facility]. Enriqueta Granda DCP- Discharge Planning Updated by [email or web address]: Lara Torre on 11/03/19 5:[address] DC PLAN: Home w/ resumption of [facility] vs Rehab. ANTICIPATED DC NEEDS: HH resumption VS Rehab. CM met with patient and her daughter to complete initial dc planning assessment. CM educated patient on the CM role and verbal consent given by patient to complete assessment. CM verified patient's address, phone number, and emergency contact phone numbers. Patient lives at home alone and reports she is usually independent in her care at home. Patient currently has [facility] and wishes to resume at discharge.They have only made one visit & she is to have physical therapy for her back. JACQUE form signed by patient for resumption of [facility]. Signed form placed in chart and signed form given to patient. At discharge patient plans to return home if she is able and feels this is a safe discharge. CM discussed rehab options with her as well. Transportation provider at discharge will be her daughter if she is able. They informed cm that she had to come to ER by ambulance because she was not able to get in the car due to her pain. CM will continue to follow and will assist as needed with dc plans/needs. Lara Torre RN, [facility] DCPIA - Discharge Planning Initial Assessment Updated by [email or web address]: Lara Torre on 11/03/19 6:22 pm * Is the patient Alert and Oriented? Yes * PCP Dr. Burnett * Pharmacy [facility] [address] [place] [address] * Preadmission Environment Home Alone * ADLs Independent * Equipment Bedside Commode Cane Oxygen Rolling Walker * Other Equipment Home O2 w/ portability - [employer] is her DME provider. * List name and contact numbers for known caregivers / representatives who currently or will assist patient after discharge: Laisha Monzon - daughter - [phone] * Verbal permission to speak to the caregivers and representatives has been obtained from the patient. Yes * Community resources currently utilized Home Health * Please name any agencies selected above. [facility] O[facility]DA SANTILLAN signed in ER for resumption. * Additional services required to return to the preadmission environment? Yes * Can the patient safely return to the preadmission environment? Yes * Has this patient been hospitalized within the prior 30 days at any hospital? No Coverage Notice Reviewer: [email or web address] Genaro Granda Notice Issued Date-Time: 11/06/2019 11:50 Notice Type: IM Discharge Notice Notice Delivered To: Patient Relationship to Patient: Production Line Solderer Name: Delivery Method: HAND - Hand Delivered Lindsey Days: Prior Verbal Notification: Recipient Understood Notice: Yes Recipient Signature: Yes Med Rec Note Co-signed by Attending: Coverage Notice Comment: Last DP export: 11/06/19 10:57 Patient Name: ALEXIS ROBBINS Page 90412 at 1618 All edits/amendments must be made on the electronic document DICTATION DATE: 11/06/191617 WARD SECRETARY: ELIANE 11/06/191617 RPT#: [id number] DC DATE:11/06/19 STATUS: DIS IN [facility] [address] [place] [address] END OF REPORT
== END 2019-11-06 13:35 | disposition home health service (06) | DRG 552 ==
LOC: D.ER 12:24 → D.M3 17:25
PROVIDERS: Emergency Medicine; Family Medicine; ADMIT Internal Medicine Nephrology; ATTEND Internal Medicine Nephrology
DX: M48.062 Spinal stenosis, lumbar region with neurogenic claudication (principal); M48.56XA Collapsed vertebra, not elsewhere classified, lumbar region, initial encounter for fracture; I48.20 Chronic atrial fibrillation, unspecified; J44.9 Chronic obstructive pulmonary disease, unspecified; I10 Essential (primary) hypertension; M47.26 Other spondylosis with radiculopathy, lumbar region

== ENCOUNTER 2019-11-11 10:48 | Inpatient (IN) | payer MEDICARE ==
[~2019-11-11] VITALS: Ht 167.6 cm; Wt 55.8 kg
[2019-11-11] VITALS (7 sets, daily range): BP systolic 121–201; BP diastolic 43–96; BMI 19.9
--- NOTE | ~2019-11-11 | HEMODYNAMI ---
PATIENT:ALEXIS ROBBINS MEDICAL RECORD: [id number] : 41 LOCATION:D.MO D.2207 ADMISSION DATE: 11/11/19 Generatedon:11/18/201912:53 Patient name: ALEXIS ROBBINS Patient #: [id number] SSN: : Date of study: 11/18/2019 Page: Of Hemodynamic Procedure Report Patient Data Patient Demographics Procedure consent was obtained First Name: ALEXIS Gender: Female Last Name: ROSENDO : 1945 [facility] Initial: D Age: 73 year(s) Patient #: [id number] Race: Unknown Additional ID: [id number] Contact details [address]: [address] [place] [address] [place] State: [place] City: [place] Zip code: [address] Past Medical History Allergies Allergen Reaction Date Comments Reported Other allergy 11/18/2019 albuterol Admission Admission Data Admission Date: 11/11/2019 Admission Time: 14:29 Room #: D.2207 Height (in.): 66 BSA: 1.63 (m2) Height (cm.): 167.64 BMI: 19.85 (kg/m2) Weight (lbs.): 123 Weight (kg.): 55.79 Procedure Procedure Types Cath Procedure Peripheral Cath Diagnostic Procedure Motor Tune Up Specialist Peripheral Procedures Sacralplasty Each Additional Body Procedure Description Procedure Date Procedure Date: 11/18/2019 Procedure Start Time: 11:44 Procedure Staff Name Function Dash Cali MD Performing Physician Abril Reynoso RT Guardian Ad Litem Sharon Curran RN Nurse Bianka Arenas RN Nurse Kj Palomino RT Scrub Procedure Data Cath Procedure Fluoroscopy Diagnostic fluoroscopy Total fluoroscopy Time: 8.5 time: 8.5 min min Diagnostic fluoroscopy Total fluoroscopy dose: 457 dose: 457 mGy mGy Procedure Medications Medication Administration Route Dosage Heparin Flush Bag added to field 1 bags (1000units/500ml NS) Lidocaine 1% added to field 20 Ancef (1Gm/50ml NS) I.V.P.B 1 g Hemodynamics Rest BSA: 1.63 (m2) O2 Consumption: Estimated: 179.67 (ml/min) O2 Consumption indexed : Estimated:110.23 (ml/min/m) Heart Rate: 121 (bpm) Snapshots Pre Cath Intra NCS Post Cath Vital Signs Time Heart Resp SPO2 etCO2 NIBP (mmHg) Rhythm Pain Sedation Rate (ipm) (%) (mmHg) Status Level (bpm) 10:50:05 44.5 152/94(127) NSR 0 (11) 10(A) , No pain 11:14:09 93 17 99 31.6 Measuring NSR 0 (11) 10(A) , No pain 11:14:25 106 14 99 31.6 139/75(102) NSR 0 (11) 10(A) , No pain 11:18:37 98 10 98 39.9 114/70(82) NSR 0 (11) 10(A) , No pain 11:22:37 80 11 96 41.4 123/81(93) NSR 0 (11) 10(A) , No pain 11:26:36 46 No Cuff NSR 0 (11) 10(A) , No pain 11:30:03 103 10 78 73.8 69/28(56) NSR 0 (11) 10(A) , No pain 11:34:54 61 13 100 45.9 109/52(87) NSR 0 (11) 10(A) , No pain 11:39:53 50 5 100 47.5 Measuring NSR 0 (11) 10(A) , No pain 11:40:08 50 12 99 41.4 109/44(90) NSR 0 (11) 10(A) , No pain 11:44:15 46 18 98 46.7 96/47(87) NSR 0 (11) 10(A) , No pain 11:48:21 43 10 99 46.7 89/39(67) NSR 0 (11) 10(A) , No pain 11:52:25 43 17 99 67.1 87/39(74) NSR 0 (11) 10(A) , No pain 11:56:29 40 19 98 63.2 88/40(69) NSR 0 (11) 10(A) , No pain 12:00:26 41 16 98 45.9 82/57(64) NSR 0 (11) 10(A) , No pain 12:04:28 39 21 98 65.6 83/41(64) NSR 0 (11) 10(A) , No pain 12:08:29 39 15 98 64 82/40(74) NSR 0 (11) 10(A) , No pain 12:12:27 41 10 98 55.7 88/48(55) NSR 0 (11) 10(A) , No pain 12:16:31 48 6 98 0 102/41(85) NSR 0 (11) 10(A) , No pain 12:20:39 48 12 96 1.5 77/32(63) NSR 0 (11) 10(A) , No pain 12:24:38 49 9 96 0 90/37(54) NSR 0 (11) 10(A) , No pain 12:29:37 44 11 96 48.1 109/42(89) NSR 0 (11) 10(A) , No pain 12:34:36 45 16 97 0 Measuring NSR 0 (11) 10(A) , No pain 12:34:44 46 17 98 0 127/53(98) NSR 0 (11) 10(A) , No pain 12:38:56 52 13 97 12 134/56(116) NSR 0 (11) 10(A) , No pain 12:43:08 49 13 97 0 150/62(120) NSR 0 (11) 10(A) , No pain 12:48:07 96 0 Measuring NSR 0 (11) 10(A) , No pain 12:48:44 96 9.7 No Cuff NSR 0 (11) 10(A) , No pain 12:52:31 0 No Cuff NSR 0 (11) 10(A) , No pain Medications Time Medication Route Dose Verified Delivered Reason Notes Effe ctiveness by by 11:00:12 Ancef (1Gm/50ml I.V.P.B 1 g Dash Carlton used for NS) Dagoberto Cali hide splitter 11:51:31 Heparin Flush added 1 Dash Bowling used for Bag to bags Viraj Cali MD procedure (1000units/500ml field CHATMAN NS) 11:51:57 Lidocaine 1% added 20ml Dash Bowling used for to vial Burda, Burda, MD procedure field MD Procedure Log Time Note 9:45:27 Patient Height : 66 inches 9:45:37 Patient Weight : 123 lbs 9:47:35 Use device set IR Diagnostic 10:31:34 Time tracking: Regular hours (M-F 7:00 - 5:00) 10:31:41 Plan of Care:Hemodynamics will remain stable., Cardiac rhythm will remain stable., Comfort level will be maintained., Respiratory function will remain adequate., Patient/ family verbilizes understanding of procedure., Procedure tolerated without complication., Recovers from procedure without complications.. 10:31:48 Patient received from Med/Surg to IR Alert and oriented. Tansferred to table in Prone position. 10:31:54 Signed procedure consent form obtained from patient. 10:32:06 H&P Date Dictated: 11/18/2019 Within 30 days and on chart.. 10:32:09 Pre-procedure instructions explained to patient. 10:32:09 Pre-op teaching completed and patient verbalized understanding. 10:32:11 Family in waiting room. 10:32:14 Patient NPO since Midnight. 10:32:38 Patient allergic to Other allergyalbuterol 10:34:47 Patient diabetic? No. 10:34:49 - 10:34:50 ----Pre-sedation anethsthesia assessment.----see anesthesia notes for monitoring of patient during procedure 10:35:24 ----Pre-sedation anethsthesia assessment.---- 10:35:28 - 10:35:37 IV patent on arrival in left hand with D5/.45%NaCl at KVO. 10:35:53 Lumbar area was prepped with dura-prep and aped in sterile fashion 10:35:56 - 11:00:12 Ancef (1Gm/50ml NS) 1 g I.V.P.B was administered by Bianka Arenas RN; used for procedure; Verbal order read back and verified. 11:12:13 - 11:12:18 ECG and BP/O2 sat monitors applied to patient. 11:12:19 Vital chart was started 11:12:20 Baseline sample Acquired. 11:15:28 Full Disclosure recording started 11:29:35 - 11:29:53 Fire Safety Assessment: A--An alcohol-based skin anteseptic being used preoperatively., C--Open oxygen or nitrous oxide is being used. 11:40:54 Physician arrived 11:40:56 --------ALL STOP TIME OUT------ 11:44:52 Procedure started. 11:44:58 Local anesthetic to Lumbar area with Lidocaine 1% by Dash Cali MD.INITIAL ACCESS ONLY 11:51:31 Heparin Flush Bag (1000units/500ml NS) 1 bags added to field was administered by Dash Cali MD; used for procedure; Verbal order read back and verified. 11:51:57 Lidocaine 1% 20ml vial added to field was administered by Dash Cali MD; used for procedure; Verbal order read back and verified. 12:11:26 MAKSIM CANNULA ACCESS 10 G NEEDLE opened to sterile field. 12:11:27 MAKSIM CANNULA ACCESS 10 G NEEDLE opened to sterile field. 12:11:28 MAKSIM CANNULA ACCESS 10 G NEEDLE opened to sterile field. 12:11:28 MAKSIM CANNULA ACCESS 10 G NEEDLE opened to sterile field. 12:11:30 Maksim BONE CEMENT WITH NEEDLE AUTOPLEX Kit opened to sterile field. 12:11:32 Tegaderm 4 x 4 (1626W) opened to sterile field. 12:11:34 Sterile Angiographic Pack opened to sterile field. 12:11:34 Bag Decanter () opened to sterile field. 12:11:42 Tegaderm 4 x 4 (1626W) opened to sterile field. 12:11:48 - 12:40:57 Procedure ended.(Physican Out) 12:45:07 Fluoroscopy time 08.50 minutes. 12:45:14 Fluoroscopy dose: 457 mGy 12:45:14 Flurop Dose total: 457 12:52:56 Report given to PCU. 12:53:27 Vital chart was stopped Device Usage Item Name Manufacture Quantity Catalog Hospital Part Current [facility] l Lot# / Number Charge Number Stock Stock Serial# Code MAKSIM Maksim 4 [id number] 5 CANNULA ACCESS 10 G NEEDLE Ono BONE Ono 1 [id number] [id number] [id number] 5 CEMENT WITH NEEDLE AUTOPLEX Kit Tegaderm 4 x 3M 1 1626W [id number] [id number] 5 4 (1626W) Sterile Cardinal 1 [id number] 5 Angiographic Health Pack Bag Decanter Microtek 1 2001S [id number] [id number] [id number] 5 () [employer] Signature Audit [place] Stage Time Signature Unsigned Intra-Procedure 11/18/2019 Abril Reynoso 12:53:24 PM RT(R) [place] [id number] [place], [place] [id number]
[~2019-11-11 10:48] MED LIST changes: +CATAPRES0.1 MG PO; +HYDROCODON-ACE1 EA10 PO; +LISINOPRIL10 MG PO; +TRELEGY ELLIPT1 EACH INH
[2019-11-11 13:53] LABS: BASOPHILS 0 % (0-2); EOSINOPHILS 0.1 % (0-7); HEMATOCRIT 38.8 % (36.0-48.0); HEMOGLOBIN 12.4 g/dL (12-16); IMMATURE GRANULOCYTES 0.6 % (0-5); LYMPHOCYTES 2.6 % (15-50); MCH 29.7 pg (26.0-34.0); MEAN PLATELET VOLUME 8.4 fL (7.4-10.4); MONOCYTES 6.7 % (2-11); PLATELET COUNT 370 10x3/uL (130-400); RBC 4.17 10x6/uL (4.00-5.40); RDW 14.1 % (11.5-14.5); WBC 16.4 10x3/uL (4.8-10.8)
[2019-11-11 13:57] LABS: CALC OSMOLALITY 281 mosm/kg (275-300); CALCIUM 9.1 mg/dL (8.5-10.1); CARBON DIOXIDE 32.1 mmol/L (21.0-32.0); CHLORIDE - SERUM 99 mmol/L (98-107); CREATININE - SERUM 0.7 mg/dL (0.6-1.3); GLUCOSE 121 mg/dL (74-106); POTASSIUM - SERUM 4.3 mmol/L (3.5-5.1); SODIUM 139 mmol/L (136-145); UREA NITROGEN 21 mg/dL (7-18); eGFR NON AFRICAN AMERICAN 86 mL/min (90-120)
[2019-11-11 14:03] LABS: ALBUMIN 3.5 g/dL (3.4-5.0); ALKALINE PHOSPHATASE 120 U/L (46-116); ALT (SGPT) 28 U/L (10-68); BILIRUBIN - TOTAL 0.49 mg/dL (0.2-1.3); PROTEIN - SERUM 6.4 g/dL (6.4-8.2)
[2019-11-11 14:10] LABS: INR 1.17 (0.85-1.17); PROTIME 14.4 SECONDS (11.6-15.0)
--- NOTE | 2019-11-11 17:20 | NUR ---
SPOKE WITH DR AUSTIN ABOUT PATIENT'S BP 209/96. STATES GIVE 0.1MG CLONIDINE AND RECHECK IN 15 MINUTES.
--- NOTE | 2019-11-11 17:44 | NUR ---
BP DECREASED TO 169/80 AFTER PRN CLONIDINE. WILL CONTINUE TO MONITOR.
--- NOTE | 2019-11-11 17:46 | NUR ---
PATIENT ADMITTED TO ROOM 2207. ADMISSION COMPLETE. REQUESTED AND GIVEN SANDWICH TRAY. NPO AFTER MN. DENIES FURTHER NEEDS. WILL CONTINUE TO MONITOR.
--- NOTE | 2019-11-11 20:00 | NUR ---
PT SITTING UP IN BED WITHOUT DISTRESS, AOX4. IV LEFT AC INFUSING NS @ 50. O2 2L/NC. LARGE BLISTER TO RIGHT FOOT INTACT. ASSISTED PT UP TO BEDSIDE COMMODE AND BACK TO BED. UA COLLECTED. DENIES OTHER NEEDS. CL IN REACH, WILL CTM
[2019-11-11 21:52] LABS: APPEARANCE CLEAR (CLEAR); BILIRUBIN NEGATIVE (NEGATIVE); COLOR YELLOW (YELLOW); GLUCOSE NEGATIVE (NEGATIVE); KETONE NEGATIVE (NEGATIVE); NITRITE NEGATIVE (NEGATIVE); PROTEIN TRACE mg/dL (NEGATIVE); UROBILINOGEN NORMAL (NORMAL)
[2019-11-11 21:53] LABS: BACTERIA FEW /hpf (NEGATIVE); EPITHELIAL CELLS 0-5 /hpf (0-5); RED CELLS - URINE 0-5 /hpf (0-5); WHITE CELLS - URINE 0-5 /hpf (NEGATIVE)
--- NOTE | 2019-11-12 01:00 | NUR ---
SPOKE WITH BANQUET KITCHEN SUPERVISOR WHO STATES DR DAO STATED TO CANCEL SURGERY IN AM AND PT DOES NOT NEED TO BE NPO
[2019-11-12 01:10] VITALS: BP 162/59
--- NOTE | 2019-11-12 05:00 | NUR ---
PT AMBULATED TO BEDSIDE COMMODE, HR INCREASED TO 120S UNCONTROLLED AFIB. PT ASSISTED BACK TO BED AND CONTINUED TO RUN 110-130S UNCONTROLLED AFIB. CALLED PACO ALVAREZ APN, ORDERS TO GIVE 0900 SOTALOL EARLY. GAVE ORDERED. WILL CTM
[2019-11-12 05:11] VITALS: BP 135/76
[2019-11-12 06:44] LABS: ANION GAP 6.7 mmol/L (8-16); BASOPHILS 0 % (0-2); CALCIUM 8.8 mg/dL (8.5-10.1); CARBON DIOXIDE 34.6 mmol/L (21.0-32.0); EOSINOPHILS 1.5 % (0-7); IMMATURE GRANULOCYTES 0.7 % (0-5); LYMPHOCYTES 8.6 % (15-50); MCH 29.4 pg (26.0-34.0); MCHC 30.8 g/dL (31.0-37.0); MEAN PLATELET VOLUME 8.5 fL (7.4-10.4); MONOCYTES 12.1 % (2-11); NEUTROPHILS 77.1 % (40-80); PLATELET COUNT 378 10x3/uL (130-400); POTASSIUM - SERUM 4.3 mmol/L (3.5-5.1); RBC 4.08 10x6/uL (4.00-5.40); RDW 14.3 % (11.5-14.5); WBC 12.5 10x3/uL (4.8-10.8)
[2019-11-12 06:45] LABS: CREATININE - SERUM 1.1 mg/dL (0.6-1.3)
[2019-11-12 06:52] LABS: MCV 95.6 fL (80.0-100.0)
--- NOTE | 2019-11-12 06:55 | NUR ---
ALERT AND ORIENTED, RESTING IN BED WITH EYES OPEN. NO C/O PAIN. NO S/S OF ACUTE DISTRESS NOTED. UP WITH ASSIST. O2 @ 2L, NC. IV TO LEFT AC, NS INFUSING @ 50ML/HR. SITE PATENT WITHOUT REDNESS OR SWELLING. BLISTER TO RIGHT TOP OF FOOT. DENIES ANY NEEDS AT THIS TIME. CALL LIGHT IN REACH. WILL CONTINUE TO MONITOR.
[2019-11-12 07:15] LABS: INR 1.02 (0.85-1.17); PROTIME 12.9 SECONDS (11.6-15.0)
[2019-11-12 09:05] VITALS: BP 122/75
--- NOTE | 2019-11-12 10:44 | NUR ---
LYING IN BED,WITHOUT DISTRESS.DENIES NEEDS.CALL LIGHT IN REACH
[2019-11-12 12:15] VITALS: Ht 167.6 cm; Wt 55.8 kg
[2019-11-12 12:50] VITALS: BP 172/52
[2019-11-12 16:20] LABS: THYROID STIMULATING HORMONE 3.77 uIU/mL (0.36-3.74)
[2019-11-12 16:38] VITALS: BP 109/52
--- NOTE | 2019-11-12 18:47 | NUR ---
ALERT AND ORIENTED, RESTING IN BED. NO C/O PAIN. NO S/S OF ACUTE DISTRESS NOTED. DENIES ANY NEEDS AT THIS TIME. CALL LIGHT IN REACH. WILL CONTINUE TO MONITOR.
--- NOTE | 2019-11-12 19:23 | NUR ---
RESTING IN BED. SLIGHTLY CONFUSED THIS SHIFT, ABLE TO REORIENT EASILY. IN PAIN, MEDICATION GIVEN PER ORDERS. ABLE TO VOICE NEEDS. WILL NOTE ANY CHANGE.
[2019-11-12 19:30] VITALS: BP 138/59
[2019-11-13 00:59] VITALS: BP 131/62
[2019-11-13 05:34] VITALS: BP 109/37
--- NOTE | 2019-11-13 06:42 | NUR ---
AT 2159 NORCO GIVEN PER ORDERS PER REQUEST, PT RESTED WELL THIS SHIFT, SHE DID NOT REQUEST ANY FURTHER PAIN MEDICAITON OR PAIN INTERVENTIONS. IV WAS RESITED TO RIGHT HAND WITHOUT DIFFICULTY.
[2019-11-13 06:52] LABS: BASOPHILS 0 % (0-2); EOSINOPHILS 1.4 % (0-7); HEMATOCRIT 34.2 % (36.0-48.0); HEMOGLOBIN 10.6 g/dL (12-16); IMMATURE GRANULOCYTES 0.6 % (0-5); LYMPHOCYTES 6.2 % (15-50); MCH 29.4 pg (26.0-34.0); MCV 94.7 fL (80.0-100.0); MEAN PLATELET VOLUME 8.5 fL (7.4-10.4); MONOCYTES 11.1 % (2-11); NEUTROPHILS 80.7 % (40-80); RBC 3.61 10x6/uL (4.00-5.40); RDW 14.2 % (11.5-14.5); WBC 11.7 10x3/uL (4.8-10.8)
[2019-11-13 06:56] LABS: INR 1.09 (0.85-1.17); PROTIME 13.6 SECONDS (11.6-15.0)
[2019-11-13 07:00] LABS: PLATELET COUNT 296 10x3/uL (130-400)
[2019-11-13 07:06] LABS: ANION GAP 7.1 mmol/L (8-16); CALCIUM 7.8 mg/dL (8.5-10.1); CARBON DIOXIDE 32.7 mmol/L (21.0-32.0); CREATININE - SERUM 1.1 mg/dL (0.6-1.3); MAGNESIUM - SERUM 1.9 mg/dL (1.8-2.4); PHOSPHOROUS 4.2 mg/dL (2.5-4.9); POTASSIUM - SERUM 3.8 mmol/L (3.5-5.1)
[2019-11-13 08:12] LABS: APPEARANCE CLEAR (CLEAR); BILIRUBIN NEGATIVE (NEGATIVE); COLOR YELLOW (YELLOW); GLUCOSE NEGATIVE (NEGATIVE); KETONE NEGATIVE (NEGATIVE); NITRITE NEGATIVE (NEGATIVE); PROTEIN TRACE mg/dL (NEGATIVE); SPECIFIC GRAVITY 1.015 (1.005-1.020); UROBILINOGEN NORMAL (NORMAL)
[2019-11-13 08:13] LABS: BACTERIA MODERATE /hpf (NEGATIVE); EPITHELIAL CELLS 0-5 /hpf (0-5); MUCUS <1+ /lpf (NONE SEEN); RED CELLS - URINE 0-5 /hpf (0-5); WHITE CELLS - URINE 0-5 /hpf (NEGATIVE)
[2019-11-13 08:49] VITALS: BP 130/55
--- NOTE | 2019-11-13 10:00 | MORECARE ---
CASE MANAGEMENT DISCHARGE SUMMARY PATIENT: ALEXIS ROBBINS UNIT: [id number] ADM DATE: 11/11/19 AGE: 73 : 43 SEX: F ROOM/BED: D.2207 AUTHOR: BETO LIU PHYSICIAN: REFERRING PHYSICIAN: SHERI AUSTIN MD DATE OF SERVICE: 11/13/19 Discharge Plan Patient Name: ALEXIS ROBBINS [facility] : 1945 Planned Disposition: Home with Home Health Anticipated Discharge Date: Discharge Date: Expected LOS: Initial Reviewer: [email or web address] Initial Review Date: 11/11/2019 Generated: 11/13/19 10:59 am Patient Name: ALEXIS ROBBINS Page [id number] at 1000 All edits/amendments must be made on the electronic document DICTATION DATE: 11/13/19958 POLICE SUPERINTENDENT: ELIANE 11/13/19958 RPT#: [id number] DC DATE: STATUS: ADM IN [facility] [address] [place] [address] END OF REPORT
--- NOTE | 2019-11-13 10:07 | MORECARE ---
CASE MANAGEMENT DISCHARGE SUMMARY PATIENT: ALEXIS ROBBINS UNIT: [id number] ADM DATE: 11/11/19 AGE: 73 : 43 SEX: F ROOM/BED: D.2207 AUTHOR: BETO LIU PHYSICIAN: REFERRING PHYSICIAN: SHERI AUSTIN MD DATE OF SERVICE: 11/13/19 Discharge Plan Patient Name: ALEXIS ROBBINS [facility] [facility] 1945 Planned Disposition: Home with Home Health Anticipated Discharge Date: Discharge Date: Expected LOS: Initial Reviewer: [email or web address] Initial Review Date: 11/11/2019 Generated: 11/13/19 11:07 am DCPIA - Discharge Planning Initial Assessment Updated by [email or web address]: Leandra Smith on 11/13/19 10:05 am * Is the patient Alert and Oriented? Yes * PCP AMY * [facility] * Preadmission Environment Home with Family * ADLs Independent * Equipment Bedside Commode Cane Oxygen Rolling Walker * Other Equipment HOME O2 WITH PORTABILITY -[employer] * List name and contact numbers for known caregivers / representatives who currently or will assist patient after discharge: LADY - DAUGHTER [phone] * Verbal permission to speak to the caregivers and representatives has been obtained from the patient. Yes * Community resources currently utilized Home Health * Please name any agencies selected above. [facility] * Additional services required to return to the preadmission environment? Yes * Has this patient been hospitalized within the prior 30 days at any hospital? Yes Last DP export: 11/13/19 9:00 Patient Name: ALEXIS ROBBINS Page 48385 at 1007 All edits/amendments must be made on the electronic document DICTATION DATE: 11/13/19 1007 ASSURANCE SOURCING MANAGER: ELIANE 11/13/19 1007 RPT#: [id number] DC DATE: STATUS: ADM IN [facility] [address] [place] [address] END OF REPORT
--- NOTE | 2019-11-13 12:10 | MORECARE ---
CASE MANAGEMENT DISCHARGE SUMMARY PATIENT: ALEXIS ROBBINS UNIT: [id number] ADM DATE: 11/11/19 AGE: 73 : 43 SEX: F ROOM/BED: D.2207 AUTHOR: NOE,DOC PHYSICIAN: REFERRING PHYSICIAN: SHERI AUSTIN MD DATE OF SERVICE: 11/13/19 Discharge Plan Patient Name: ALEXIS ROBBINS Facility: [facility]:[place] : 1945 Planned Disposition: Home with Home Health Anticipated Discharge Date: Discharge Date: Expected LOS: Initial Reviewer: [email or web address] Initial Review Date: 11/11/2019 Generated: 11/13/19 1:10 pm Comments DCP- Discharge Planning Updated by [email or web address]: Leandra Smith on 11/13/19 11:[address] Patient Name: ALEXIS ROBBINS Admission Status: Elective Accout number: [id number] Admission Date: 11-11-2019 : 1945 Admission Diagnosis: Attending: SHERI AUSTIN Current LOS: 2 Anticipated DC Date: Planned Disposition: Home with Home Health Primary Insurance: [employer] CHOICE PPO MCR ADVANT Discharge Planning Comments: CM met with patient to complete initial dc planning assessment. CM educated patient on the CM role and verbal consent given by patient to complete assessment. Patient lives at home by herself where she stated she is independent with her care. At discharge patient is unsure of what is a safe discharge. Home with [facility] vs [facility]. CM discussed availability of home health, rehab services, and medical equipment. She is current with [facility]. She has home O2 with portability and concentrator through [employer]. BSC, cane, rolling walker. JACQUE signed to resume all the current providers. Will wait for after DC to see about safe discharge. Patient denied known discharge needs at this time. CM will continue to follow and will assist as needed with dc plans/needs Superintendent Terminal: Leandra Smith DCPIA - Discharge Planning Initial Assessment Updated by [email or web address]: Leandra Smith on 11/13/19 10:05 am * Is the patient Alert and Oriented? Yes * PCP AMY * Pharmacy [facility] [address] * Preadmission Environment Home with Family * ADLs Independent * Equipment Bedside Commode Cane Oxygen Rolling Walker * Other Equipment HOME O2 WITH PORTABILITY -[facility] * List name and contact numbers for known caregivers / representatives who currently or will assist patient after discharge: LADY - DAUGHTER [phone] * Verbal permission to speak to the caregivers and representatives has been obtained from the patient. Yes * Community resources currently utilized Home Health * Please name any agencies selected above. [facility] * Additional services required to return to the preadmission environment? Yes * Has this patient been hospitalized within the prior 30 days at any hospital? Yes Coverage Notice Reviewer: [email or web address] Genaro Smith Notice Issued Date-Time: 11/13/2019 8:45 Notice Type: Patient Choice Letter Notice Delivered To: Patient Relationship to Patient: Cotton Sampler Name: Delivery Method: HAND - Hand Delivered Lindsey Days: Prior Verbal Notification: Recipient Understood Notice: Yes Recipient Signature: Yes Med Rec Note Co-signed by Attending: Coverage Notice Comment: lizandro palomares-dme Last DP export: 11/13/19 9:07 Patient Name: ALEXIS ROBBINS Page 26249 at 1210 All edits/amendments must be made on the electronic document DICTATION DATE: 11/13/19 121 GENETIC PHYSICIAN: ELIANE 11/13/19 1210 RPT#: [id number] DC DATE: STATUS: ADM IN [facility] [address] [place] [address] END OF REPORT
[2019-11-13 12:46] VITALS: BP 99/53
--- NOTE | 2019-11-13 13:15 | NUR ---
pt to stay thru weekend, not doing ir procedure today, pt has uti that needs treatment, iv infusing, cont to monitor pain
[2019-11-13 17:03] VITALS: BP 121/57
--- NOTE | 2019-11-13 19:25 | NUR ---
PATIENT RESTING IN BED AND DENIES NEEDS AT THIS TIME. BED IN LOWEST POSITION AND CALL LIGHT WITHIN REACH. ENCOURAGED THE PATIENT TO CALL IF HE HAS NEEDS. WILL CONTINUE TO MONITOR.
[2019-11-13 20:00] VITALS: BP 111/50
[2019-11-14] VITALS: BP 111/60
[2019-11-14 04:00] VITALS: BP 120/57
[2019-11-14 06:31] LABS: BASOPHILS 0 % (0-2); HEMATOCRIT 35.6 % (36.0-48.0); HEMOGLOBIN 11.1 g/dL (12-16); IMMATURE GRANULOCYTES 0.5 % (0-5); MCH 29.5 pg (26.0-34.0); MCHC 31.2 g/dL (31.0-37.0); MCV 94.7 fL (80.0-100.0); MEAN PLATELET VOLUME 8.7 fL (7.4-10.4); NEUTROPHILS 82.5 % (40-80); PLATELET COUNT 298 10x3/uL (130-400); RBC 3.76 10x6/uL (4.00-5.40); RDW 14.3 % (11.5-14.5); WBC 12.4 10x3/uL (4.8-10.8)
[2019-11-14 07:01] LABS: ANION GAP 11.4 mmol/L (8-16); CALCIUM 8.6 mg/dL (8.5-10.1); CARBON DIOXIDE 30.8 mmol/L (21.0-32.0); CREATININE - SERUM 1.1 mg/dL (0.6-1.3); MAGNESIUM - SERUM 2.1 mg/dL (1.8-2.4); PHOSPHOROUS 3.5 mg/dL (2.5-4.9); POTASSIUM - SERUM 4.2 mmol/L (3.5-5.1)
[2019-11-14 08:00] VITALS: BP 170/72
--- NOTE | 2019-11-14 08:00 | NUR ---
PATIENT LAYING IN BED. NO NEEDS AT THIS TIME. CL IN REACH. WCTM
--- NOTE | 2019-11-14 11:05 | NUR ---
ASSISTED PATIENT TO BEDSIDE COMMODE AND BACK TO BED. LAYING ON RIGHT SIDE. CL IN REACH. WCTM
[2019-11-14 12:00] VITALS: BP 102/55
--- NOTE | 2019-11-14 12:54 | NUR ---
Nutrition follow-up: Diet: Regular PO intake good at this time; pt reports happy with meals and getting what is ordered. Labs reviewed Wt: 123# RDN following.
--- NOTE | 2019-11-14 14:00 | NUR ---
DAUGHTER IN ROOM. STATES MOM WOULD LIKE A PAIN PILL. I CHECKED TO SEE IF IT WAS AVAILABLE AND IT WAS. DAUGHTER CAME BACK AND TOLD ME THAT SHE WANTED TO SEE IF SHE CAN WAIT. I TOLD HER I WOULD BRING IT WHEN SHE ASKS. CL IN REACH. READING A NEWSPAPER. WCTM
--- NOTE | 2019-11-14 15:25 | EC ---
PATIENT:ALEXIS ROBBINS DATE OF SERVICE: 11/11/19 SEX: F MEDICAL RECORD: [id number] DATE OF : 41 LOCATION:D.MS Goel220 AGE OF PATIENT: 73 ADMISSION DATE: 11/11/19 REFERRING PHYSICIAN: INTERPRETING PHYSICIAN: JACQUELIN FELIZ MD ECHOCARDIOGRAM REPORT ECHO CHARGES 4 ECHO COMPLETE Date: 11/12/19 CLINICAL DIAGNOSIS: A-FIB ECHOCARDIOGRAPHIC MEASUREMENTS (adult normal given) AC root (d.<3.7cm) 2.8 cm LV Septum d (<1.2 cm> 0.8 cm Valve Excursion 1.5 cm LV Septum (systole) 1.4 cm Left Atria (s.<4.0cm> 3.2 cm LVPW d(<1.2cm) 1.1 cm RV (d.<2.3cm) 2.2 cm LVPW (sytole) 1.5 cm LV diastole(<5.6CM) 4.5 cm MV E-F(>70mm/sec) cm LV systole 2.2 cm LVOT Diameter 1.5 cm MV exc.(>10mm) cm Est.ejection fraction (50-75%) % DOPPLER: LVIT cm/sec A 41.0 cm/sec E 114 cm/sec LA cm/sec RVSP 57.0 mmHg LVOT 127 cm/sec AOP1/2T m/s Asc. Ao 156 cm/sec RVOT 44.0 cm/sec RA cm/sec PA 73.0 cm/sec AV Gradient Peak 9.7 mmHg AV Mean 4.3 mmHg AV Area 1.6 cm MV Gradient Peak 5.5 mmHg MV Mean 1.3 mmHg MV Area cm COMMENTS: Research Development Director: Peter JOYCEOE Extraction Supervisor: 1 Dr. Feliz TAPE# PACS Pericardial Effusion N DATE OF SERVICE: 11/12/2019 FINDINGS: 1. Left ventricular chamber size is within normal limits. Left ventricular systolic function is normal. Overall ejection fraction estimated at 60%. 2. Left atrium is within normal limits at 3.2 cm. Right atrium and right ventricular chamber sizes are mildly dilated. 3. Valvular structures have normal structure and motion. 4. Doppler interrogation reveals moderate mitral regurgitation, [id number] tricuspid regurgitation, no other valvular insufficiency or ECHOCARDIOGRAM REPORT [id number] ALEXIS ROBBINS stenosis. Pulmonary systolic pressure estimated at 57 mmHg. 5. No evidence of pericardial effusion or left ventricular thrombus. TRANSINT:[id number] Voice Confirmation ID: [id number] DOCUMENT ID: [id number] JACQUELIN FELIZ MD at 1525 CC: [id number] DICTATION DATE: 11/12/19 1632 CHAIN MENDER: 11/13/19 0214 ADM IN [facility] [address] [place] [id number]
[2019-11-14 17:04] VITALS: BP 114/62
--- NOTE | 2019-11-14 17:08 | NUR ---
PATIENT ASSISTED TO BEDSIDE COMMODE AND BACK TO BED. SITTING UP ON SIDE OF BED EATING DINNER. CL IN REACH. NO NEEDS AT THIS TIME. WCTM
--- NOTE | 2019-11-14 17:43 | NUR ---
PATIENT BLISTER RUPTURED. COVERED WITH NON ADHESIVE DRESSING AND KERLEX. USING DOPPLER FOR PEDAL PULSES.
--- NOTE | 2019-11-14 17:53 | NUR ---
PEDAL PULSES WERE ABLE TO BE DOPPLERED AND MARKED. CAP REFILL GREATER THAN [address] AUSTIN NOTIFIED ABOUT BLISTER AND PEDAL. TM
[2019-11-14 20:00] VITALS: BP 103/45
--- NOTE | 2019-11-14 21:30 | NUR ---
A/O WITH NO SIGNS OF DISTRESS. IV TO THE RT HAND WITH NO REDNESS OR SWELLING NOTED. REHANA FEET ARE COLD AND DARK DISCOLORATION. DOPPLERED PULSES. DRESSING AND SWELLING NOTED TO THE LT FOOT. REHANA FEET ARE ELEVATED. NC @2L. HELD BP MEDS DUE BP OF 103/62. WILL MONITOR AND ADMIN MEDS IF NEEDED. ASSISTED TO BEDSIDE COMMODE AND BACK IN BED. DENIES NO FURTHER NEEDS AT THIS TIME. CONTINUE PLAN OF CARE.
[2019-11-15] VITALS: BP 119/59
[2019-11-15 04:00] VITALS: BP 122/56
[2019-11-15 06:31] LABS: BASOPHILS 0.1 % (0-2); EOSINOPHILS 2.9 % (0-7); HEMATOCRIT 33.8 % (36.0-48.0); HEMOGLOBIN 10.6 g/dL (12-16); IMMATURE GRANULOCYTES 0.4 % (0-5); LYMPHOCYTES 7.6 % (15-50); MCH 29.8 pg (26.0-34.0); MCHC 31.4 g/dL (31.0-37.0); MCV 94.9 fL (80.0-100.0); MEAN PLATELET VOLUME 8.6 fL (7.4-10.4); MONOCYTES 8.8 % (2-11); NEUTROPHILS 80.2 % (40-80); PLATELET COUNT 303 10x3/uL (130-400); RBC 3.56 10x6/uL (4.00-5.40); RDW 14.4 % (11.5-14.5)
[2019-11-15 06:45] LABS: ANION GAP 9.6 mmol/L (8-16); CALCIUM 8.8 mg/dL (8.5-10.1); MAGNESIUM - SERUM 2.2 mg/dL (1.8-2.4); PHOSPHOROUS 3.8 mg/dL (2.5-4.9); POTASSIUM - SERUM 4.6 mmol/L (3.5-5.1)
[2019-11-15 06:49] LABS: CREATININE - SERUM 1.4 mg/dL (0.6-1.3)
--- NOTE | 2019-11-15 08:30 | NUR ---
PATIENT IN BED WITH IV INTACT. NO COMPLAINTS OR SIGNS OF DISTRESS. EYES CLOSED RESTING QUIETLY. CALL LIGHT WITHIN REACH.
[2019-11-15 09:02] VITALS: BP 129/67
--- NOTE | 2019-11-15 11:20 | NUR ---
PATIENT ASSISTED TO BSC. NO COMPLAINTS. IV INTACT. CALL LIGHT WITHIN REACH.
[2019-11-15 13:25] VITALS: BP 100/45
--- NOTE | 2019-11-15 14:00 | NUR ---
PATIENT IN BED WITH EYES CLOSED RESTING QUIETLY. CALL LIGHT WITHIN REACH.
--- NOTE | 2019-11-15 15:58 | NUR ---
PATIENT SITTING UP ON THE SIDE OF THE BED DRINKING COFFEE. IV INTACT. CALL LIGHT WITHIN REACH.
[2019-11-15 17:02] VITALS: BP 120/38
[2019-11-15 20:00] VITALS: BP 144/56
[2019-11-16] VITALS: BP 93/40
[2019-11-16 04:00] VITALS: BP 110/46
[2019-11-16 06:41] LABS: BASOPHILS 0.1 % (0-2); EOSINOPHILS 2.3 % (0-7); HEMATOCRIT 33.5 % (36.0-48.0); HEMOGLOBIN 10.3 g/dL (12-16); IMMATURE GRANULOCYTES 0.3 % (0-5); LYMPHOCYTES 7.6 % (15-50); MCH 29.2 pg (26.0-34.0); MCHC 30.7 g/dL (31.0-37.0); MCV 94.9 fL (80.0-100.0); MEAN PLATELET VOLUME 8.8 fL (7.4-10.4); MONOCYTES 10.9 % (2-11); NEUTROPHILS 78.8 % (40-80); PLATELET COUNT 337 10x3/uL (130-400); RBC 3.53 10x6/uL (4.00-5.40); RDW 14.6 % (11.5-14.5); WBC 9.1 10x3/uL (4.8-10.8)
[2019-11-16 07:01] LABS: ANION GAP 10.3 mmol/L (8-16); CALCIUM 8.9 mg/dL (8.5-10.1); CARBON DIOXIDE 32.7 mmol/L (21.0-32.0); CREATININE - SERUM 1.6 mg/dL (0.6-1.3); MAGNESIUM - SERUM 2.1 mg/dL (1.8-2.4); PHOSPHOROUS 3.9 mg/dL (2.5-4.9)
--- NOTE | 2019-11-16 08:09 | NUR ---
PT RESTING IN BED WITH EYES CLOSED, EASILY AROUSED TO SPEECH. REPORTS A SLIGHTLY UPSET STOMACH BUT KNOWS IT ISNT TIME FOR ANYMORE STOMACH MEDICINE YET. IV LOCATED TO RIGHT HAND CURRENTLY SL. DENIES NEEDS, WILL CONT TO MONITOR.
[2019-11-16 08:35] VITALS: BP 110/63
[2019-11-16 13:03] VITALS: BP 100/53
--- NOTE | 2019-11-16 14:35 | NUR ---
IV CAME OUT WITH TIP INTACT, RESITED TO RIGHT FA.
[2019-11-16 16:37] VITALS: BP 101/72
--- NOTE | 2019-11-16 19:40 | NUR ---
PT SITTING UP IN BED RESTING WITHOUT DISTRESS, AOX4. FAMILY AT BEDSIDE. DENIES NEEDS AT THIS TIME, CL IN REACH, WILL CTM
[2019-11-16 20:00] VITALS: BP 124/54
[2019-11-17] VITALS: BP 109/44
[2019-11-17 04:00] VITALS: BP 115/49
[2019-11-17 05:08] LABS: BASOPHILS 0.1 % (0-2); EOSINOPHILS 1.8 % (0-7); HEMATOCRIT 32.3 % (36.0-48.0); IMMATURE GRANULOCYTES 0.2 % (0-5); LYMPHOCYTES 5.8 % (15-50); MCH 29.4 pg (26.0-34.0); MEAN PLATELET VOLUME 8.5 fL (7.4-10.4); MONOCYTES 10.3 % (2-11); NEUTROPHILS 81.8 % (40-80); PLATELET COUNT 274 10x3/uL (130-400); RDW 14.3 % (11.5-14.5); WBC 10.7 10x3/uL (4.8-10.8)
[2019-11-17 05:32] LABS: ANION GAP 9.5 mmol/L (8-16); CALCIUM 9.1 mg/dL (8.5-10.1); CARBON DIOXIDE 33.1 mmol/L (21.0-32.0); CREATININE - SERUM 1.3 mg/dL (0.6-1.3); PHOSPHOROUS 3.2 mg/dL (2.5-4.9); POTASSIUM - SERUM 5.6 mmol/L (3.5-5.1)
[2019-11-17 08:11] VITALS: BP 134/84
--- NOTE | 2019-11-17 11:39 | NUR ---
PATIENT RECIEVED THIS AM RESTING IN BED, BACK PAIN RELIEVED WITH NORCO AND ZOFRAN ALSO GIVEN FOR NAUSEA. PATIENT IS VERY WEAK AND REQUIRES ASSISTANCE TO RESTROOM. RESPIRATIONS REGULAR AND NONLABORED. CL IN REACH
[2019-11-17 12:37] VITALS: BP 101/43
[2019-11-17 15:10] LABS: APPEARANCE CLEAR (CLEAR); BILIRUBIN NEGATIVE (NEGATIVE); COLOR YELLOW (YELLOW); GLUCOSE NEGATIVE (NEGATIVE); KETONE NEGATIVE (NEGATIVE); NITRITE NEGATIVE (NEGATIVE); PROTEIN NEGATIVE (NEGATIVE); SPECIFIC GRAVITY 1.005 (1.005-1.020); UROBILINOGEN NORMAL (NORMAL)
[2019-11-17 16:33] VITALS: BP 108/69
--- NOTE | 2019-11-17 19:45 | NUR ---
PT SITTING UP IN BED WITHOUT DISTRESS, AOX4. ASSISTED UP TO BEDSIDE COMMODE AND BACK TO BED. IV LEFT WRIST SL. O2 2L/NC. HR 58 SB. DENIES NEEDS AT THIS TIME. CL IN REACH, WILL CTM
[2019-11-17 20:35] VITALS: BP 100/50
[2019-11-18] VITALS (12 sets, daily range): BP systolic 90–165; BP diastolic 29–69
--- NOTE | 2019-11-18 04:36 | NUR ---
PT LYING IN BED RESTING WITHOUT DISTRESS, PT HAS BEEN NPO SINCE MIDNIGHT. DENIES NEEDS. WILL CTM
[2019-11-18 05:33] LABS: ANION GAP 7.1 mmol/L (8-16); CALCIUM 8.8 mg/dL (8.5-10.1); CARBON DIOXIDE 33.5 mmol/L (21.0-32.0)
[2019-11-18 05:36] LABS: POTASSIUM - SERUM 4.6 mmol/L (3.5-5.1)
[2019-11-18 06:05] LABS: BASOPHILS 0 % (0-2); EOSINOPHILS 1.7 % (0-7); HEMATOCRIT 31.3 % (36.0-48.0); HEMOGLOBIN 9.8 g/dL (12-16); IMMATURE GRANULOCYTES 0.2 % (0-5); LYMPHOCYTES 8.1 % (15-50); MCH 29.7 pg (26.0-34.0); MCHC 31.3 g/dL (31.0-37.0); MCV 94.8 fL (80.0-100.0); MEAN PLATELET VOLUME 8.9 fL (7.4-10.4); MONOCYTES 9.7 % (2-11); NEUTROPHILS 80.3 % (40-80); PLATELET COUNT 278 10x3/uL (130-400); RDW 14.5 % (11.5-14.5)
[2019-11-18 08:43] LABS: APTT 31.7 SECONDS (22.8-39.4); INR 1.01 (0.85-1.17); PROTIME 12.8 SECONDS (11.6-15.0)
--- NOTE | 2019-11-18 11:07 | NUR ---
Nutrition follow-up: Diet: Regular NPO today for sarcoplasty PO Intake has decreased; now ~25% of meals and pt reports being very weak. Labs reviewed RDN following.
--- NOTE | 2019-11-18 19:25 | NUR ---
PT SITTING UP IN BED WITHOUT DISTRESS, AOX4. FAMILY AT BEDSIDE. IV RIGHT AC, FLUSHES EASILY. O2 2L/NC. STATES PAIN IN BACK 02/03. DENIES NEEDS. CL IN REACH, WILL CTM
[2019-11-19 00:52] VITALS: BP 142/39
[2019-11-19 04:28] VITALS: BP 151/70
[2019-11-19 05:23] LABS: BASOPHILS 0.1 % (0-2); EOSINOPHILS 1.1 % (0-7); HEMATOCRIT 30.7 % (36.0-48.0); HEMOGLOBIN 9.6 g/dL (12-16); IMMATURE GRANULOCYTES 0.3 % (0-5); LYMPHOCYTES 7.5 % (15-50); MCH 29.1 pg (26.0-34.0); MCHC 31.3 g/dL (31.0-37.0); MEAN PLATELET VOLUME 8.5 fL (7.4-10.4); MONOCYTES 8.9 % (2-11); NEUTROPHILS 82.1 % (40-80); PLATELET COUNT 246 10x3/uL (130-400); RDW 14.3 % (11.5-14.5); WBC 9.8 10x3/uL (4.8-10.8)
[2019-11-19 05:35] LABS: ANION GAP 13.7 mmol/L (8-16); CALCIUM 8.5 mg/dL (8.5-10.1); CARBON DIOXIDE 30.2 mmol/L (21.0-32.0); CREATININE - SERUM 0.8 mg/dL (0.6-1.3); POTASSIUM - SERUM 4.9 mmol/L (3.5-5.1)
--- NOTE | 2019-11-19 06:50 | NUR ---
ALERT AND ORIENTED, RESTING IN BED. NO C/O PAIN. NO S/S OF ACUTE DISTRESS NOTED. ON 2L O2, NC. ON TELEMETRY SR 64. UP WITH ASSIST. IV TO RIGHT AC, SL. SITE PATENT WITHOUT REDNESS OR SWELLING. INCISION TO LOWER BACK/SACRAL AREA, DRESSING C/D/I. BLISTERS TO RIGHT FOOT, ALSO RED AND TENDER. LUNG SOUNDS DIMINISHES ALL LOBES. DENIES ANY NEEDS AT THIS TIME. MARI ALARM ON. CALL LIGHT IN REACH. WILL CONTINUE TO MONITOR.
[2019-11-19 08:53] VITALS: BP 146/46
--- NOTE | 2019-11-19 10:33 | MORECARE ---
CASE MANAGEMENT DISCHARGE SUMMARY PATIENT: ALEXIS ROBBINS UNIT: [id number] ADM DATE: 11/11/19 AGE: 73 : 43 SEX: F ROOM/BED: D.2207 AUTHOR: NOE,DOC PHYSICIAN: REFERRING PHYSICIAN: SHERI AUSTIN MD DATE OF SERVICE: 11/19/19 Discharge Plan Patient Name: ALEXIS ROBBINS Facility: [facility]:[place] : 1945 Planned Disposition: Home with Home Health Anticipated Discharge Date: Discharge Date: Expected LOS: Initial Reviewer: [email or web address] Initial Review Date: 11/11/2019 Generated: 11/19/19 11:32 am Comments DCP- Discharge Planning Updated by [email or web address]: Leandra Smith on 11/19/19 9:[address] ANTICIPATE DC TOMORROW, IMM SERVED AND EXPLAINED. PATIENT WILL BE DISCHARGED TO [facility]. SHE IS CURRENT WITH THEM ALREADY. PATIENT AMBULATED WELL WITH WALKER DCP- Discharge Planning Updated by [id number]: Leandra Smith on 11/13/19 11:[address] Patient Name: ALEXIS ROBBINS Admission Status: Elective Accout number: [id number] Admission Date: 11-11-2019 : 1945 Admission Diagnosis: Attending: SHERI AUSTIN Current LOS: 2 Anticipated DC Date: Planned Disposition: Home with Home Health Primary Insurance: [employer] CHOICE PPO MCR [employer] Discharge Planning Comments: CM met with patient to complete initial dc planning assessment. CM educated patient on the CM role and verbal consent given by patient to complete assessment. Patient lives at home by herself where she stated she is independent with her care. At discharge patient is unsure of what is a safe discharge. Home with home health vs [facility]. CM discussed availability of home health, rehab services, and medical equipment. She is current with [facility]. She has home O2 with portability and concentrator through [employer]. BSC, cane, rolling walker. JACQUE signed to resume all the current providers. Will wait for after DC to see about safe discharge. Patient denied known discharge needs at this time. CM will continue to follow and will assist as needed with dc plans/needs Rn Heart: Leandra Smith DCPIA - Discharge Planning Initial Assessment Updated by [email or web address]: Leandra Smith on 11/13/19 10:05 am * Is the patient Alert and Oriented? Yes * PCP AMY * [facility] [address] * Preadmission Environment Home with Family * ADLs Independent * Equipment Bedside Commode Cane Oxygen Rolling Walker * Other Equipment HOME O2 WITH PORTABILITY -[facility] * List name and contact numbers for known caregivers / representatives who currently or will assist patient after discharge: LADY PEMBERTON [phone] * Verbal permission to speak to the caregivers and representatives has been obtained from the patient. Yes * Community resources currently utilized Home Health * Please name any agencies selected above. [facility] * Additional services required to return to the preadmission environment? Yes * Has this patient been hospitalized within the prior 30 days at any hospital? Yes Coverage Notice Reviewer: [email or web address] Genaro Smith Notice Issued Date-Time: 11/13/2019 8:45 Notice Type: Patient Choice Letter Notice Delivered To: Patient Relationship to Patient: Manager Animation Name: Delivery Method: HAND - Hand Delivered Lindsey Days: Prior Verbal Notification: Recipient Understood Notice: Yes Recipient Signature: Yes Med Rec Note Co-signed by Attending: Coverage Notice Comment: lizandro palomares-dme Reviewer: [email or web address] - Leandra Smith Notice Issued Date-Time: 11/19/2019 10:25 Notice Type: IM Discharge Notice Notice Delivered To: Patient Relationship to Patient: Manager Animation Name: Delivery Method: HAND - Hand Delivered Lindsey Days: Prior Verbal Notification: Recipient Understood Notice: Yes Recipient Signature: Yes Med Rec Note Co-signed by Attending: Coverage Notice Comment: Last DP export: 11/13/19 11:10 Patient Name: ALEXIS ROBBINS Page [phone] at 1033 All edits/amendments must be made on the electronic document DICTATION DATE: 11/19/19 103 COUNSELLORS: ELIANE 11/19/19 1032 RPT#: [id number] DC DATE: STATUS: ADM IN [facility] [address] [place] [address] END OF REPORT
--- NOTE | 2019-11-19 12:01 | NUR ---
I have reviewed this patient and I concur with the Shift Assessment completed by the Licensed Practical Nurse today this shift.
[2019-11-19 12:55] VITALS: BP 100/69
[2019-11-19 16:49] VITALS: BP 101/56
--- NOTE | 2019-11-19 18:19 | NUR ---
RESTING IN BED, EYES CLOSED. RESPIRATIONS EVEN AND UNLABORED. AROUSES TO VOICE. DENIES ANY NEEDS. CALL LIGHT IN REACH. MARI ALARM ON. WILL CONTINUE TO MONITOR.
--- NOTE | 2019-11-19 19:30 | NUR ---
PT LYING IN BED SLEEPING WITHOUT DISTRESS, AWAKENS EASILY. AOX4. DENIES NEEDS OR PAIN. CL IN REACH, WILL CTM
[2019-11-19 21:10] VITALS: BP 99/41
[2019-11-20 01:58] VITALS: BP 110/46
[2019-11-20 04:52] LABS: BASOPHILS 0.2 % (0-2); EOSINOPHILS 2.7 % (0-7); HEMATOCRIT 30.9 % (36.0-48.0); HEMOGLOBIN 9.7 g/dL (12-16); IMMATURE GRANULOCYTES 0.2 % (0-5); LYMPHOCYTES 10.7 % (15-50); MCH 29.1 pg (26.0-34.0); MCHC 31.4 g/dL (31.0-37.0); MCV 92.8 fL (80.0-100.0); MEAN PLATELET VOLUME 8.6 fL (7.4-10.4); MONOCYTES 11.6 % (2-11); NEUTROPHILS 74.6 % (40-80); PLATELET COUNT 247 10x3/uL (130-400); RBC 3.33 10x6/uL (4.00-5.40); RDW 14.3 % (11.5-14.5); WBC 8.1 10x3/uL (4.8-10.8)
[2019-11-20 05:05] LABS: ANION GAP 10.8 mmol/L (8-16); CALCIUM 8.8 mg/dL (8.5-10.1); CARBON DIOXIDE 31.7 mmol/L (21.0-32.0); POTASSIUM - SERUM 4.5 mmol/L (3.5-5.1)
[2019-11-20 05:06] LABS: CREATININE - SERUM 1.2 mg/dL (0.6-1.3)
[2019-11-20 08:09] VITALS: BP 132/52
--- NOTE | 2019-11-20 08:14 | NUR ---
PATIENT LAYING ON LEFT SIDE. DRESSING ON MID LOWER BACK SHOWS SOME DRY BLOODY SATURATION. FALL PRECAUTIONS IN PLACE. POSSE MAT ON. CL IN REACH. STATES "NO PAIN." NO NEEDS AT THIS TIME. WCTM
[2019-11-20] MEDS ORDERED: SMZ-TMP DS 800-1 TAB PO (10:17)
[2019-11-20] MEDS ORDERED: BETAPACE 120 M120 MG PO (10:19)
--- NOTE | 2019-11-20 10:32 | NUR ---
PATIENT SITTING UP ON SIDE OF BED. WORKING WITH PT NOW. TM
--- NOTE | 2019-11-20 12:59 | NUR ---
PATIENT IV DC'ED FROM [facility]FA WITH TIP INTACT. DISCHARGE INSTRUCTIONS GIVEN. PATIENT AND FAMILY VERBALIZED UNDERSTANDING. ESCORTED TO THE FRONT AND INTO [facility].
--- NOTE | 2019-11-20 13:01 | NUR ---
MEDICATIONS CALLED INTO [facility] [address].
--- NOTE | 2019-11-21 08:16 | MORECARE ---
CASE MANAGEMENT DISCHARGE SUMMARY PATIENT: ALEXIS ROBBINS UNIT: [id number] ADM DATE: 11/11/19 AGE: 73 : 43 SEX: F ROOM/BED: D.2207 AUTHOR: NOE,DOC PHYSICIAN: REFERRING PHYSICIAN: SHERI AUSITN MD DATE OF SERVICE: 11/21/19 Discharge Plan Patient Name: ALEXIS ROBBINS Facility: [facility]:[place] : 1945 Planned Disposition: Home with Home Health Anticipated Discharge Date: Discharge Date: 11/20/2019 Expected LOS: Initial Reviewer: [email or web address] Initial Review Date: 11/11/2019 Generated: 11/21/19 9:16 am Comments DCP- Discharge Planning Updated by [id number]: Leandra Smith on 11/19/19 9:[address] ANTICIPATE DC TOMORROW, IMM SERVED AND EXPLAINED. PATIENT WILL BE DISCHARGED TO [facility]. SHE IS CURRENT WITH THEM ALREADY. PATIENT AMBULATED WELL WITH [facility]ALKER DCP- Discharge Planning Updated by [id number]: Leandra Smith on 11/13/19 11:[address] Patient Name: ALEXIS ROBBINS Admission Status: Elective Accout number: [id number] Admission Date: 11-11-2019 : 1945 Admission Diagnosis: Attending: SHERI AUSTIN Current LOS: 2 Anticipated DC Date: Planned Disposition: Home with Home Health Primary Insurance: HU[employer] CHOICE PPO MCR [facility] Discharge Planning Comments: CM met with patient to complete initial dc planning assessment. CM educated patient on the CM role and verbal consent given by patient to complete assessment. Patient lives at home by herself where she stated she is independent with her care. At discharge patient is unsure of what is a safe discharge. [facility]. CM discussed availability of home health, rehab services, and medical equipment. She is current with [facility]. She has home O2 with portability and concentrator through [employer]. BSC, cane, rolling walker. JACQUE signed to resume all the current providers. Will wait for after DC to see about safe discharge. Patient denied known discharge needs at this time. CM will continue to follow and will assist as needed with dc plans/needs Electro Mechanical Engineer: Leandra Smith DCPIA - Discharge Planning Initial Assessment Updated by [email or web address]: Leandar Smith on 11/13/19 10:05 am * Is the patient Alert and Oriented? Yes * PCP [facility] * [facility] [address] * Preadmission Environment Home with Family * ADLs Independent * Equipment Bedside Commode Cane Oxygen Rolling Walker * Other Equipment HOME O2 WITH PORTABILITY -[facility] * List name and contact numbers for known caregivers / representatives who currently or will assist patient after discharge: LADY - DAUGHTER [phone] * Verbal permission to speak to the caregivers and representatives has been obtained from the patient. Yes * Community resources currently utilized Home Health * Please name any agencies selected above. [facility] * Additional services required to return to the preadmission environment? Yes * Has this patient been hospitalized within the prior 30 days at any hospital? Yes External Providers External Provider: [facility] Next Contact Date: Service Request Date: Service Type: Resolution: Reviewer: Comments: Coverage Notice Reviewer: [id number] - Leandra Smith Notice Issued Date-Time: 11/13/2019 8:45 Notice Type: Patient Choice Letter Notice Delivered To: Patient Relationship to Patient: Animal Caretaker Supervisor Name: Delivery Method: HAND - Hand Delivered Lindsey Days: Prior Verbal Notification: Recipient Understood Notice: Yes Recipient Signature: Yes Med Rec Note Co-signed by Attending: Coverage Notice Comment: lizandro estrada Reviewer: [email or web address] Genaro Smith Notice Issued Date-Time: 11/19/2019 10:25 Notice Type: IM Discharge Notice Notice Delivered To: Patient Relationship to Patient: Animal Caretaker Supervisor Name: Delivery Method: HAND - Hand Delivered Lindsey Days: Prior Verbal Notification: Recipient Understood Notice: Yes Recipient Signature: Yes Med Rec Note Co-signed by Attending: Coverage Notice Comment: Last DP export: 11/19/19 9:33 Patient Name: ALEXIS ROBBINS Page [phone] at 0816 All edits/amendments must be made on the electronic document DICTATION DATE: 11/21/19814 CELL INSPECTOR: ELIANE 11/21/1915 RPT#: [id number] DC DATE:11/20/19 STATUS: DIS IN [facility] [address] [place] [address] END OF REPORT
--- NOTE | 2019-11-21 11:11 | NUR ---
CALLED AND TALK TO TRESA IN IR, STAS ONEAL RN CALLED ME BACK , IT WAS OK WITH THEM TO START PT BACK ON HER HOME DOSE OF XARELTO . PT CALLED INFORMED TO START XARELTO BACK AT HOME DOSE, PATIENT STATED SHE HAD SOME AFIB SINCE SHE BEEN OFF MEDICATION , INFORMED TO STATE BACK
== END 2019-11-20 13:01 | disposition home health service (06) | DRG 515 ==
LOC: D.ER 10:48 → D.MS 14:29
PROVIDERS: Family Medicine; General Practice; Radiology Diagnostic Radiology; ADMIT Internal Medicine Nephrology; ATTEND Internal Medicine Nephrology
PROC: 0QU13JZ Supplement Sacrum with Synthetic Substitute, Percutaneous Approach (ICD-10-PCS; principal; 2019-11-18 11:47)
DX: M84.48XA Pathological fracture, other site, initial encounter for fracture (principal); I50.33 Acute on chronic diastolic (congestive) heart failure; J96.11 Chronic respiratory failure with hypoxia; N39.0 Urinary tract infection, site not specified; I48.20 Chronic atrial fibrillation, unspecified; M48.061 Spinal stenosis, lumbar region without neurogenic claudication; D72.829 Elevated white blood cell count, unspecified; J44.9 Chronic obstructive pulmonary disease, unspecified; Z85.118 Personal history of other malignant neoplasm of bronchus and lung; Z99.81 Dependence on supplemental oxygen; I11.0 Hypertensive heart disease with heart failure; Z79.01 Long term (current) use of anticoagulants; S90.821A Blister (nonthermal), right foot, initial encounter

== ENCOUNTER 2021-01-20 09:10 | Inpatient (IN) | payer OTHER ==
[~2021-01-20] VITALS: Ht 167.6 cm; Wt 52.2 kg
[~2021-01-20 09:10] MED LIST changes: +BETAPACE 120 M120 MG PO; +SMZ-TMP DS 800-1 TAB PO
[2021-01-20] MEDS ORDERED: ZESTRIL20 MG PO (09:32)
[2021-01-20] MEDS ORDERED: ASPIRIN81 MG (09:32)
[2021-01-20] MEDS ORDERED: BETAPACE 120 M120 MG PO (09:32)
[2021-01-20] MEDS ORDERED: LASIX20 MG PO (09:33)
[2021-01-20] MEDS ORDERED: XARELTO15 MG PO (09:33)
[2021-01-20] MEDS ORDERED: POTASSIUM CHLO10 ME1 (09:34)
[2021-01-20] MEDS ORDERED: SINGULAIR10 MG PO (09:37)
[2021-01-20 09:59] LABS: BASOPHILS 0.6 % (0-2); EOSINOPHILS 5.2 % (0-7); HEMATOCRIT 41.2 % (36.0-48.0); HEMOGLOBIN 12.7 g/dL (12-16); IMMATURE GRANULOCYTES 0.1 % (0-5); LYMPHOCYTES 10.9 % (15-50); MCH 29.1 pg (26.0-34.0); MCHC 30.8 g/dL (31.0-37.0); MCV 94.3 fL (80.0-100.0); MEAN PLATELET VOLUME 8.8 fL (7.4-10.4); MONOCYTES 3.1 % (2-11); NEUTROPHIL ABS# 6.64 10x3/uL (1.56-6.13); NEUTROPHILS 80.1 % (40-80); PLATELET COUNT 255 10x3/uL (130-400); RBC 4.37 10x6/uL (4.00-5.40); RDW 12.4 % (11.5-14.5); WBC 8.3 10x3/uL (4.8-10.8)
[2021-01-20 10:25] LABS: APTT 25.6 SECONDS (22.8-39.4); INR 1.03 (0.85-1.17); PROTIME 12.5 SECONDS (11.6-15.0)
[2021-01-20 10:28] LABS: CALC OSMOLALITY 281 mosm/kg (275-300); CALCIUM 9.5 mg/dL (8.5-10.1); CARBON DIOXIDE 32.4 mmol/L (21.0-32.0); CHLORIDE - SERUM 100 mmol/L (98-107); CREATININE - SERUM 1.3 mg/dL (0.6-1.3); GLUCOSE 137 mg/dL (74-106); POTASSIUM - SERUM 5.2 mmol/L (3.5-5.1); SODIUM 139 mmol/L (136-145); UREA NITROGEN 18 mg/dL (7-18); eGFR NON AFRICAN AMERICAN 42 mL/min (90-120)
[2021-01-20 10:44] LABS: ALBUMIN 4.1 g/dL (3.4-5.0); ALKALINE PHOSPHATASE 106 U/L (30-120); ALT (SGPT) 15 U/L (10-68); CREATINE KINASE 86 UL (21-215); PRO BNP 1222 pg/mL (0-450); PROTEIN - SERUM 7.4 g/dL (6.4-8.2); TROPONIN-I < 0.017 ng/mL (0.000-0.060)
--- NOTE | 2021-01-20 14:10 | NUR ---
SCDS PLCED ON PATIENT
[2021-01-20 14:35] LABS: SARS-CoV-2 ANTIGEN NEGATIVE- SARS-COV-2 (NEGATIVE)
--- NOTE | 2021-01-20 15:52 | NUR ---
URINALYSIS TO LAB
--- NOTE | 2021-01-20 17:00 | NUR ---
PT ARRIVED VIA WHEELCHAIR AT THIS TIME. RR EVEN NON LABORED. SLIGHT AUDITORY WHEEZES NOTED ON AMBULATION. O2 IN PLACE VIA NC. PT STATES TO FEEL MUCH BETTER. PT ANSWERS ALL QUESTIONS APPROP. PT AAOX3, PLEASANT. NO NEEDS VOICED AT THIS TIME. EDUCATION GIVEN REGARDING SCDS AND CALL LIGHT/TV CONTROL. PT STATES UNDERSTANDING. CLWR.
[2021-01-20 17:08] VITALS: BP 183/80; BMI 18.6
--- NOTE | 2021-01-21 02:33 | NUR ---
PATIENT LYING SUPINE AAOX4, RESP EVEN AND NON LABORED, NO S/S OF DISTRESS, MEDICATIONS ADMINISTERED WITHOUT COMPLICATIONS, PATIENT IS IN A PLEASANT MOOD, ICE WATER PROVIDED, NO FURTHER NEEDS AT THIS TIME, YAMILETH, NGOCP
[2021-01-21 06:26] LABS: BASOPHILS 0.1 % (0-2); EOSINOPHILS 0 % (0-7); HEMATOCRIT 39.6 % (36.0-48.0); HEMOGLOBIN 12.2 g/dL (12-16); IMMATURE GRANULOCYTES 0.2 % (0-5); LYMPHOCYTE ABS# 0.94 10x3/uL (1.18-3.74); LYMPHOCYTES 8.4 % (15-50); MCH 28.6 pg (26.0-34.0); MCHC 30.8 g/dL (31.0-37.0); MCV 92.7 fL (80.0-100.0); MEAN PLATELET VOLUME 8.9 fL (7.4-10.4); MONOCYTES 1.5 % (2-11); NEUTROPHIL ABS# 10.05 10x3/uL (1.56-6.13); NEUTROPHILS 89.8 % (40-80); RBC 4.27 10x6/uL (4.00-5.40); RDW 12.5 % (11.5-14.5)
[2021-01-21 06:38] LABS: PLATELET COUNT 332 10x3/uL (130-400); WBC 11.2 10x3/uL (4.8-10.8)
[2021-01-21 07:00] LABS: ANION GAP 11.7 mmol/L (8-16); BILIRUBIN - TOTAL 0.31 mg/dL (0.2-1.3); CALCIUM 9.8 mg/dL (8.5-10.1); CARBON DIOXIDE 31.8 mmol/L (21.0-32.0); CREATININE - SERUM 1.3 mg/dL (0.6-1.3); MAGNESIUM - SERUM 2.3 mg/dL (1.8-2.4); POTASSIUM - SERUM 4.5 mmol/L (3.5-5.1); PROTEIN - SERUM 7.6 g/dL (6.4-8.2)
[2021-01-21 07:42] VITALS: BP 112/55
[2021-01-21 12:32] VITALS: Ht 167.6 cm; Wt 52.2 kg
--- NOTE | 2021-01-21 15:58 | NUR ---
PT UP IN ROOM. PLEASANT & COOPERATIVE. DENIES ANY NEEDS. O2 @ 2LNC SHE WEARS AT HOME. AWAITING COVID RESULTS.
[2021-01-22 00:20] VITALS: BP 130/70
--- NOTE | 2021-01-22 01:39 | NUR ---
I have reviewed this patient and I concur with the Shift Assessment completed by the Licensed Practical Nurse today this shift.
[2021-01-22 05:35] LABS: BASOPHILS 0 % (0-2); EOSINOPHILS 0 % (0-7); HEMATOCRIT 36.6 % (36.0-48.0); HEMOGLOBIN 11.6 g/dL (12-16); IMMATURE GRANULOCYTES 0.2 % (0-5); LYMPHOCYTE ABS# 0.58 10x3/uL (1.18-3.74); LYMPHOCYTES 4.3 % (15-50); MCH 29.1 pg (26.0-34.0); MCHC 31.7 g/dL (31.0-37.0); MCV 91.7 fL (80.0-100.0); MEAN PLATELET VOLUME 8.9 fL (7.4-10.4); MONOCYTES 3.7 % (2-11); NEUTROPHIL ABS# 12.42 10x3/uL (1.56-6.13); NEUTROPHILS 91.8 % (40-80); PLATELET COUNT 283 10x3/uL (130-400); RBC 3.99 10x6/uL (4.00-5.40); RDW 12.5 % (11.5-14.5); WBC 13.5 10x3/uL (4.8-10.8)
[2021-01-22 06:48] LABS: ALBUMIN 3.7 g/dL (3.4-5.0); ANION GAP 7.8 mmol/L (8-16); BILIRUBIN - TOTAL 0.22 mg/dL (0.2-1.3); CALCIUM 9.2 mg/dL (8.5-10.1); CARBON DIOXIDE 34.9 mmol/L (21.0-32.0); CREATININE - SERUM 1.2 mg/dL (0.6-1.3); MAGNESIUM - SERUM 2.3 mg/dL (1.8-2.4); POTASSIUM - SERUM 4.7 mmol/L (3.5-5.1); PROTEIN - SERUM 6.8 g/dL (6.4-8.2)
[2021-01-22 08:29] VITALS: BP 117/52
[2021-01-22] MEDS ORDERED: PREDNISONE10 MG PO (11:10)
[2021-01-22] MEDS ORDERED: ZYRTEC10 MG PO (11:11)
[2021-01-22 11:55] VITALS: BP 152/87
[2021-01-22 15:09] VITALS: BP 129/69
[2021-01-22 20:00] VITALS: BP 175/70
--- NOTE | 2021-01-22 20:55 | NUR ---
PIV TO LEFT AC LEAKING UPON ATTEMPT TO ADMINISTER SOLU-MEDROL PER ORDERS. DC'D, TIP INTACT. NEW PIV TO LEFT FA, 22 GAUGE, X1 ATTEMPT. PT TOLERATED WELL.
[2021-01-23 04:29] VITALS: BP 129/76
[2021-01-23 06:50] LABS: BASOPHILS 0 % (0-2); EOSINOPHILS 0 % (0-7); HEMATOCRIT 38.2 % (36.0-48.0); HEMOGLOBIN 11.7 g/dL (12-16); IMMATURE GRANULOCYTES 0.3 % (0-5); LYMPHOCYTE ABS# 0.47 10x3/uL (1.18-3.74); MCH 28.3 pg (26.0-34.0); MCHC 30.6 g/dL (31.0-37.0); MCV 92.5 fL (80.0-100.0); MONOCYTES 2.4 % (2-11); NEUTROPHIL ABS# 11.11 10x3/uL (1.56-6.13); NEUTROPHILS 93.3 % (40-80); PLATELET COUNT 291 10x3/uL (130-400); RBC 4.13 10x6/uL (4.00-5.40); RDW 12.5 % (11.5-14.5); WBC 11.9 10x3/uL (4.8-10.8)
[2021-01-23 07:30] VITALS: BP 181/72
--- NOTE | 2021-01-23 07:31 | NUR ---
AM ROUNDING DONE WITH PATIENT ON HEAT MONITOR. ON 2L PER NC, WHICH IS HER HOME DOSE. LEFT FA PIV SEEN WITH SALINE LOCK. GLASSES ON. DENIES ANY NEEDS AT THIS TIME.
[2021-01-23 08:35] LABS: ALBUMIN 3.8 g/dL (3.4-5.0); ANION GAP 11.1 mmol/L (8-16); BILIRUBIN - TOTAL 0.29 mg/dL (0.2-1.3); CALCIUM 9.4 mg/dL (8.5-10.1); CARBON DIOXIDE 33.6 mmol/L (21.0-32.0); CREATININE - SERUM 1.1 mg/dL (0.6-1.3); MAGNESIUM - SERUM 2.4 mg/dL (1.8-2.4); POTASSIUM - SERUM 4.7 mmol/L (3.5-5.1); PROTEIN - SERUM 6.8 g/dL (6.4-8.2)
[2021-01-23 12:00] VITALS: BP 142/73
--- NOTE | 2021-01-23 12:53 | NUR ---
0950-PATIENT TO PERFORM IS WITH 1000 ML TIDAL VOLUME. 1200-PATIENT TO PERFORM IS WITH 750 ML VOLUME.
[2021-01-23 16:00] VITALS: BP 138/58
--- NOTE | 2021-01-23 17:46 | NUR ---
SITTING ON SIDE OF BED EATING SUPPER. DENIES NEEDS. SLIGHT WHEEZE THIS EVENING. USING IS WITH TIDAL VOLUME OF 1000 ML.
[2021-01-23 20:00] VITALS: BP 160/61
--- NOTE | 2021-01-23 23:50 | NUR ---
INITIAL ROUNDS COMPLETED AT 1910 HRS. PT DENIED ANY DISCOMFORT. ASSESSMENT COMPLETED AT 2015 HRS. VSS. SB PER CM HR 55. ALERT AND ORIENTED TO PERSON, PLACE AND TIME. WREN. PALPABLE PERIPHERAL PULSES. IV TO LFA SL. O2 2LNC. LUNGS DIMINISHED IN BASES BILAT. ABD SOFT WITH ACTIVE BS NOTED. PM MEDS GIVEN. PT CURRENTLY RESTING WITH EYES CLOSED. RESP EVEN AND REGULAR. SR UP X2,CALL LIGHT WITHIN REACH.
[2021-01-24] VITALS: BP 124/53
--- NOTE | 2021-01-24 00:39 | NUR ---
PT RESTING WITH EYES CLOSED. RESP EVEN AND REGULAR. SR UP X1, CALL LIGHT WITHIN REACH.
--- NOTE | 2021-01-24 02:38 | NUR ---
PT RESTING WITH EYES CLOSED. RESP EVEN AND REGULAR. SR UP X1, CALL LIGHT WITHIN REACH.
--- NOTE | 2021-01-24 04:07 | NUR ---
PT RESTING WITH EYES CLOSED. RESP EVEN AND REGULAR. SR UP X1, CALL LIGHT WIHTIN REACH.
[2021-01-24 06:01] LABS: BASOPHILS 0 % (0-2); EOSINOPHILS 0 % (0-7); HEMATOCRIT 36.6 % (36.0-48.0); HEMOGLOBIN 11.4 g/dL (12-16); IMMATURE GRANULOCYTES 0.5 % (0-5); MCH 28.3 pg (26.0-34.0); MCHC 31.1 g/dL (31.0-37.0); MCV 90.8 fL (80.0-100.0); MEAN PLATELET VOLUME 9.3 fL (7.4-10.4); MONOCYTES 3.5 % (2-11); NEUTROPHIL ABS# 9.11 10x3/uL (1.56-6.13); PLATELET COUNT 299 10x3/uL (130-400); RBC 4.03 10x6/uL (4.00-5.40); RDW 12.4 % (11.5-14.5)
--- NOTE | 2021-01-24 06:13 | NUR ---
[facility] PT DENIED ANY DISOCMFORT. NEEDS MDT; WILL CONTINUE TO MONITOR.
[2021-01-24 07:07] LABS: ALBUMIN 3.2 g/dL (3.4-5.0); ANION GAP 7.8 mmol/L (8-16); BILIRUBIN - TOTAL 0.21 mg/dL (0.2-1.3); CALCIUM 8.6 mg/dL (8.5-10.1); CARBON DIOXIDE 32.3 mmol/L (21.0-32.0); CREATININE - SERUM 1.1 mg/dL (0.6-1.3); MAGNESIUM - SERUM 2.2 mg/dL (1.8-2.4); POTASSIUM - SERUM 4.1 mmol/L (3.5-5.1); PROTEIN - SERUM 6.2 g/dL (6.4-8.2)
[2021-01-24 07:15] VITALS: BP 155/65
[2021-01-24 08:24] VITALS: BP 165/66
--- NOTE | 2021-01-24 10:08 | NUR ---
IV AND TELEMETRY DCD. DC PLANS GIVEN. UNDERSTANDING VOICED.
--- NOTE | 2021-01-24 10:38 | MORECARE ---
CASE MANAGEMENT DISCHARGE SUMMARY PATIENT: ALEXIS ROBBINS UNIT: [id number] ADM DATE: 01/20/21 AGE: 75 : 43 SEX: F ROOM/BED: D.3 AUTHOR: BETO LIU PHYSICIAN: REFERRING PHYSICIAN: VINCE VIEIRA MD DATE OF SERVICE: 01/24/21 Discharge Plan Patient Name: ALEXIS ROBBINS [facility] [facility] 1945 Planned Disposition: Home Anticipated Discharge Date: 01/24/21 Discharge Date: Expected LOS: 4 Initial Reviewer: [email or web address] Initial Review Date: 01/20/2021 Generated: 01/24/21 11:37 am Patient Name: ALEXIS ROBBINS Page [id number] at 1038 All edits/amendments must be made on the electronic document DICTATION DATE: 01/24/21 1037 PROCESS LEAD: ELIANE 01/24/21 [facility] RPT#: [id number] DC DATE: STATUS: ADM IN [facility] [address] [place] [address] END OF REPORT
--- NOTE | 2021-01-24 10:46 | MORECARE ---
CASE MANAGEMENT DISCHARGE SUMMARY PATIENT: ALEXIS ROBBINS UNIT: [id number] ADM DATE: 01/20/21 AGE: 75 : 43 SEX: F ROOM/BED: D.0589 AUTHOR: NOE,DOC PHYSICIAN: REFERRING PHYSICIAN: VINCE VIEIRA MD DATE OF SERVICE: 01/24/21 Discharge Plan Patient Name: ALEXIS ROBBINS Facility: [facility]:[place] : 1945 Planned Disposition: Home Anticipated Discharge Date: 01/24/21 Discharge Date: Expected LOS: 4 Initial Reviewer: [email or web address] Initial Review Date: 01/20/2021 Generated: 01/24/21 11:45 am Comments DCP- Discharge Planning Updated by [id number]: Polo Kerns on 01/24/21 9:[address] CM met with patient to complete DC plan and to evaluate needs. Patient lives independently alone. At discharge, the patient plans to return home and feels this is a safe discharge. CM discussed availability of home health, rehab services, and medical equipment. Patient declined HHS, SNF, IPR, and DME. Patient stated that she is able to "get around" fine and that she has home oxygen with [employer]. Patient voiced no other needs at this time and is satisfied with DC plan. Transportation provider at discharge will be with her daughter, Laisha Monzon [phone]. DC IMM delivered, explained, signed by the patient, and placed in chart. Signed form also left with the patient. CM will continue to follow and will assist as needed with dc plans/needs. DCPIA - Discharge Planning Initial Assessment Updated by [email or web address]: Polo Kerns on 01/24/21 10:38 am * Is the patient Alert and Oriented? Yes * How many steps to enter\\exit or inside your home? 5/0 * PCP [facility] * [facility]acy [facility] [address] * Preadmission Environment Home Alone * ADLs Independent * Equipment Cane Shower Chair Walker * Other Equipment n/a * List name and contact numbers for known caregivers / representatives who currently or will assist patient after discharge: Laisha Monzon (dtr) [phone] * Verbal permission to speak to the caregivers and representatives has been obtained from the patient. Yes * Community resources currently utilized Other * Please name any agencies selected above. HOME Oxygen with [employer] * Additional services required to return to the preadmission environment? No * Can the patient safely return to the preadmission environment? Yes * Has this patient been hospitalized within the prior 30 days at any hospital? No Coverage Notice Reviewer: [email or web address] Genaro AmadorPololee Brooksnes Notice Issued Date-Time: 01/24/2021 9:30 Notice Type: IM Discharge Notice Notice Delivered To: Patient Relationship to Patient: Self Herd Tester Name: Delivery Method: HAND - Hand Delivered Lindsey Days: Prior Verbal Notification: Recipient Understood Notice: Yes Recipient Signature: Yes Med Rec Note Co-signed by Attending: Coverage Notice Comment: DC IMM delivered, explained, signed by the patient, and placed in chart. Last DP export: 01/24/21 9:38 a Patient Name: ALEXIS ROBBINS Page [phone] at 1046 All edits/amendments must be made on the electronic document DICTATION DATE: 01/24/21 1045 DIRECTOR OF VITAL STATISTICS: ELIANE 01/24/21 1045 RPT#: [id number] DC DATE: STATUS: ADM IN [facility] [address] [place] [address] END OF REPORT
--- NOTE | 2021-01-24 11:56 | NUR ---
ESCORTED TO CAR BY W/C.
--- NOTE | 2021-01-25 07:39 | MORECARE ---
CASE MANAGEMENT DISCHARGE SUMMARY PATIENT: ALEXIS ROBBINS UNIT: [id number] ADM DATE: 01/20/21 AGE: 75 : 43 SEX: F ROOM/BED: D.5371 AUTHOR: NOE,DOC PHYSICIAN: REFERRING PHYSICIAN: VINCE VIEIRA MD DATE OF SERVICE: 01/25/21 Discharge Plan Patient Name: ALEXIS ROBBINS Facility: [facility]:[place] : 1945 Planned Disposition: Home Anticipated Discharge Date: 01/24/21 Discharge Date: 01/24/2021 Expected LOS: 4 Initial Reviewer: [email or web address] Initial Review Date: 01/20/2021 Generated: 01/25/21 8:38 am Comments DCP- Discharge Planning Updated by [email or web address]: Polo Kenrs on 01/24/21 9:[address] CM met with patient to complete DC plan and to evaluate needs. Patient lives independently alone. At discharge, the patient plans to return home and feels this is a safe discharge. CM discussed availability of home health, rehab services, and medical equipment. Patient declined HHS, SNF, IPR, and DME. Patient stated that she is able to "get around" fine and that she has home oxygen with [employer]. Patient voiced no other needs at this time and is satisfied with DC plan. Transportation provider at discharge will be with her daughter, Laisha Monzon [phone]. DC IMM delivered, explained, signed by the patient, and placed in chart. Signed form also left with the patient. CM will continue to follow and will assist as needed with dc plans/needs. DCPIA - Discharge Planning Initial Assessment Updated by [email or web address]: Polo Kerns on 01/24/21 10:38 am * Is the patient Alert and Oriented? Yes * How many steps to enter\\exit or inside your home? 5/0 * PCP AM[facility] * Pharmacy [facility] [address] * Preadmission Environment Home Alone * ADLs Independent * Equipment Cane Shower Chair Walker * Other Equipment n/a * List name and contact numbers for known caregivers / representatives who currently or will assist patient after discharge: Laisha Monzon (dtr) [phone] * Verbal permission to speak to the caregivers and representatives has been obtained from the patient. Yes * Community resources currently utilized Other * Please name any agencies selected above. HOME Oxygen with [employer] * Additional services required to return to the preadmission environment? No * Can the patient safely return to the preadmission environment? Yes * Has this patient been hospitalized within the prior 30 days at any hospital? No Coverage Notice Reviewer: [email or web address] Genaro Kerns Notice Issued Date-Time: 01/24/2021 9:30 Notice Type: IM Discharge Notice Notice Delivered To: Patient Relationship to Patient: Self Chief Medical Physicist Name: Delivery Method: HAND - Hand Delivered Lindsey Days: Prior Verbal Notification: Recipient Understood Notice: Yes Recipient Signature: Yes Med Rec Note Co-signed by Attending: Coverage Notice Comment: DC IMM delivered, explained, signed by the patient, and placed in chart. Last DP export: 01/24/21 9:46 a Patient Name: ALEXIS ROBBINS Page [id number] at 0739 All edits/amendments must be made on the electronic document DICTATION DATE: 01/25/21737 CORPORATE TREASURER: ELIANE 01/25/21737 RPT#: [id number] DC DATE:01/24/21 STATUS: DIS IN [facility] [address] [place] [address] END OF REPORT
== END 2021-01-24 11:57 | disposition home or self-care (01) | DRG 189 ==
LOC: D.ER 09:10 → D.EDHOLD 10:53 → D.M2 10:53
PROVIDERS: Family Medicine; ADMIT Family Medicine; ATTEND Family Medicine
DX: J96.21 Acute and chronic respiratory failure with hypoxia (principal); J44.1 Chronic obstructive pulmonary disease with (acute) exacerbation; I48.20 Chronic atrial fibrillation, unspecified; E78.5 Hyperlipidemia, unspecified; I10 Essential (primary) hypertension; J30.9 Allergic rhinitis, unspecified; Z85.118 Personal history of other malignant neoplasm of bronchus and lung; Z87.891 Personal history of nicotine dependence

== ENCOUNTER → 2021-05-05 09:52 | Outpatient (CLI) | payer OTHER ==
[2021-01-21 12:32] VITALS: BMI 18.5
[~2021-05-05 09:52] MED LIST changes: +ASPIRIN81 MG; +LASIX20 MG PO; +POTASSIUM CHLO10 ME1; +SINGULAIR10 MG PO; +ZESTRIL20 MG PO; +ZYRTEC10 MG PO
== END | disposition home or self-care (01) ==
LOC: D.RT 09:52
PROVIDERS: ATTEND Internal Medicine Pulmonary Disease
DX: J44.9 Chronic obstructive pulmonary disease, unspecified (principal)

== ENCOUNTER → 2021-05-21 09:42 | Outpatient (CLI) | payer OTHER ==
[2021-01-21 12:32] VITALS: BMI 18.5
== END | disposition home or self-care (01) ==
LOC: D.HCCECHO 09:42
PROVIDERS: ATTEND Internal Medicine Cardiovascular Disease
DX: I25.10 Atherosclerotic heart disease of native coronary artery without angina pectoris (principal)